=== PATIENT | male | born 1945 | race Caucasian/White ===

== ENCOUNTER 2020-03-05 20:37 | Observation (INO) | payer MEDICARE, OTHER ==
[~2020-03-05] VITALS: Ht 167.6 cm; Wt 73.7 kg
[2020-03-05] MEDS ORDERED: SODIUM CHLORIDE 0.9% 1000ML 1,000 ML IV STA (20:59)
[2020-03-05] MEDS ORDERED: MECLIZINE HCL 12.5 MG TAB PO ONE (21:00)
[2020-03-05 21:57] LABS: BASOPHILS # (AUTO) 0.1 (0.0-0.1); BASOPHILS % 0.8 % (0.0-1.0); EOSINOPHILS # (AUTO) 0.2 (0.0-0.4); EOSINOPHILS % 2.4 % (0.0-6.0); HEMATOCRIT 37.6 % (38.2-49.6); HEMOGLOBIN 12.1 g/dL (14.0-18.0); LYMPHOCYTES # (AUTO) 1.3 (1.0-3.2); LYMPHOCYTES % 16.9 % (18.0-39.1); MEAN CORPUSCULAR HEMOGLOBIN 26.9 pg (28-32); MEAN CORPUSCULAR HGB CONC 32.2 g/dL (31-35); MEAN CORPUSCULAR VOLUME 83.6 fL (81-99); MONOCYTES # (AUTO) 0.7 (0.2-0.8); MONOCYTES % 8.5 % (4.4-11.3); NEUTROPHILS # (AUTO) 5.6 (2.1-6.9); PLATELET COUNT 179 x10e3/uL (140-360); RED CELL DISTRIBUTION WIDTH 15.8 % (11.7-14.4)
[2020-03-05 22:20] LABS: ALANINE AMINOTRANSFERASE 41 IU/L (0-55); ALBUMIN 4.1 g/dL (3.5-5.0); ALBUMIN/GLOBULIN RATIO 1.5 (0.8-2.0); ALKALINE PHOSPHATASE 66 IU/L (40-150); ANION GAP 18.2 mmol/L (8-16); BLOOD UREA NITROGEN 27 mg/dL (7-26); BUN/CREATININE RATIO 25 (6-25); CALCIUM 9.8 mg/dL (8.4-10.2); CARBON DIOXIDE 20 mmol/L (22-29); CHLORIDE 102 mmol/L (98-107); CREATINE KINASE 59 IU/L (30-200); EST GLOMERULAR FILTRATION RATE > 60 ML/MIN (60-); GLUCOSE 112 mg/dL (74-118); POTASSIUM 4.2 mmol/L (3.5-5.1); SODIUM 136 mmol/L (136-145)
[2020-03-05] MEDS ORDERED: ASPIRIN 81 MG CHEW TAB PO ONE (23:00)
[2020-03-06] VITALS (7 sets, daily range): BP systolic 107–120; BP diastolic 69–81
[2020-03-06] MEDS ORDERED: FLOMAX0.4 MG PO (08:38)
[2020-03-06] MEDS ORDERED: LUPRON DEPOT45 MG IM (08:38)
[2020-03-06] MEDS ORDERED: MAGNESIUM OXID400 MG PO (08:38)
[2020-03-06] MEDS ORDERED: VITAMIN D PO (08:38)
[2020-03-06] MEDS ORDERED: POTASSIUM20 MEQ/100 PO (08:38)
[2020-03-06] MEDS ORDERED: VITAMIN B-121000 MC2 SQ (08:38)
[2020-03-06] MEDS ORDERED: OS-CAL 500+D T1 EACH PO (08:38)
[2020-03-06] MEDS ORDERED: PREDNISONE5 MG PO (08:38)
[2020-03-06] MEDS ORDERED: LISINOPRIL10 MG PO (08:38)
[2020-03-06] MEDS ORDERED: AMLODIPINE BESY10 MG PO (08:38)
[2020-03-06] MEDS ORDERED: FAMOTIDINE20 MG PO (08:38)
[2020-03-06] MEDS ORDERED: DIPHENHYDRAMINE25 MG PO (08:38)
[2020-03-06] MEDS ORDERED: CO Q-10100 MG PO (08:38)
[2020-03-06] MEDS ORDERED: AMLODIPINE BESYLATE 10 MG TAB PO SCH (09:00)
[2020-03-06 09:03] LABS: CREATINE KINASE MB 2.2 ng/mL (0-5.0)
[2020-03-06 09:40] LABS: CHOL/HDL RATIO 3.9 (3.9-4.7)
[2020-03-06] MEDS ORDERED: LISINOPRIL 10 MG TAB PO SCH (12:00)
[2020-03-06] MEDS ORDERED: TRAMADOL HCL 50 MG TAB PO NR (12:30)
[2020-03-06 14:54] LABS: CREATINE KINASE MB 2.1 ng/mL (0-5.0)
[2020-03-06] MEDS ORDERED: FAMOTIDINE 20 MG TAB PO SCH (16:30)
[2020-03-06] MEDS ORDERED: MAGNESIUM OXIDE 400 MG TAB PO SCH (17:00)
[2020-03-06] MEDS ORDERED: PREDNISONE 5 MG TAB PO SCH (17:00)
[2020-03-06] MEDS ORDERED: OYST-CAL-D 500MG TABLET PO SCH (17:00)
[2020-03-06] MEDS ORDERED: TAMSULOSIN HCL 0.4 MG CAP PO SCH (21:00)
[2020-03-07] MEDS ORDERED: AMLODIPINE BESYLATE 10 MG TAB PO SCH (09:00)
[2020-03-07] MEDS ORDERED: CYANOCOBALAMIN 1,000 MCG TAB PO SCH (09:00)
== END 2020-03-06 17:51 | disposition home or self-care (01) ==
LOC: ER 20:42 → ERHOLD 23:42 → MED/SURG3 03-06 00:32
PROVIDERS: ADMIT Internal Medicine; ATTEND Internal Medicine
DX: I95.9 Hypotension, unspecified (principal); I10 Essential (primary) hypertension; E78.00 Pure hypercholesterolemia, unspecified; C61 Malignant neoplasm of prostate; J45.909 Unspecified asthma, uncomplicated; R11.10 Vomiting, unspecified; Z11.59 Encounter for screening for other viral diseases
CPT/HCPCS: 36415 ×2; 70450; 80053; 80061; 82550 ×2; 82553 ×2; 84484 ×2; 85025; 93005; 99285; G0378 ×2; J7030; J8597; U0002

== ENCOUNTER 2020-03-13 19:29 | Inpatient (IN) | payer MEDICARE ==
[~2020-03-13] VITALS: Ht 167.6 cm; Wt 74.5 kg
[~2020-03-13 19:29] MED LIST: AMLODIPINE BESY10 MG PO; CO Q-10100 MG PO; DIPHENHYDRAMINE25 MG PO; FAMOTIDINE20 MG PO; FLOMAX0.4 MG PO; LISINOPRIL10 MG PO; LUPRON DEPOT45 MG IM; MAGNESIUM OXID400 MG PO; OS-CAL 500+D T1 EACH PO; POTASSIUM20 MEQ/100 PO; PREDNISONE5 MG PO; VITAMIN B-121000 MC2 SQ; VITAMIN D PO
[2020-03-13] MEDS ORDERED: ONDANSETRON HCL INJ 2MG/ML 2ML 2 MG/ML VIAL IV STA (19:54)
[2020-03-13] MEDS ORDERED: SODIUM CHLORIDE 0.9% 1000ML 1,000 ML IV STA ×2 (19:54→23:40)
--- NOTE | 2020-03-13 19:54 | Emergency Department Note ---
History of Present Illnes History of Present Illness Chief Complaint: Abdominal Complaints History of Present Illness This is a 74 year old male arrives to the ED with complaints of right groin pain that began suddenly. Patient states pain is worsening despite the fact that he's had a hernia for 2 years the pain has come on suddenly today. . Chief Complaint Comment 74 Y/O MALE PT AAOX3 PRESENTS TO THE ER C/O PAIN TO RT GROIN ONSET THIS AFTERNOON AROUND 1730; PT HAS INGUINAL HERNIA FOR THE PAST 2 YEARS BUT EXPERIENCED PAIN TODAY; PT REPROTS STIFFNESS TO SITE; PT STATES PAIN WORSENS WHEN AMBULATING; NAD NOTED AT THIS TIME; V/S/S; SKIN WARM, DRY AND COLOR WNL FOR PT. Historian: Patient Arrival Mode: Car Onset (how long ago): hour(s) Duration (how long): hour(s) Progression: worsening Chronicity: new Relieving factors: none Exacerbating factors: none Past Medical/Family History Physician Review I have reviewed the patient's past medical and family history. Any updates have been documented here. Past Medical History Recent Fever: No Clinical Suspicion of Infectio: No New/Unexplained Change in Ment: No Past Medical History: Hypertension, GERD, Chronic Back Pain Other Medical History: PROSTATE CA WAQAR TO BONE MUSCLE PAIN ESOPHAGEAL STRICTURE PROTEIN PROBLEM INGUINAL HERNIA Past Surgical History: T&A Other Surgery: CIRC TURP CATARACTS Social History Physically hurt or threatened: No Review of Systems Review of Systems Constitutional: Reports no symptoms EENTM: Reports no symptoms Cardiovascular: Reports no symptoms Respiratory: Reports no symptoms Gastrointestinal: Reports no symptoms Genitourinary: Reports as per HPI, Reports other (scrotal pain ) Musculoskeletal: Reports no symptoms Integumentary: Reports no symptoms Neurological: Reports no symptoms Psychological: Reports no symptoms Endocrine: Reports no symptoms Hematological/Lymphatic: Reports no symptoms Physical Exam Related Data Allergies: Coded Allergies: midazolam (Verified Allergy, Unknown, 03/13/20) Uncoded Allergies: MIDALOZAM (Adverse Reaction, Unknown, paradoxical reaction, 03/05/20) Triage Vital Signs Vital Signs Date Time Temp Pulse Resp B/P (MAP) Pulse Ox O2 Delivery O2 Flow Rate FiO2 03/13/20 19:36 98.5 109 20 142/77 98 Room Air Vital signs reviewed: Yes Physical Exam CONSTITUTIONAL Constitutional: Present well-developed, Present well-nourished HENT HENT: Present normocephalic, Present atraumatic, Present oropharynx clear/moist, Present nose normal HENT L/R: Present left ext ear normal, Present right ext ear normal EYES Eyes: Reports PERRL, Reports conjunctivae normal NECK Neck: Present ROM normal PULMONARY Pulmonary: Present effort normal, Present breath sounds normal CARDIOVASCULAR Cardiovascular: Present regular rhythm, Present heart sounds normal, Present capillary refill normal, Present normal rate GASTROINTESTINAL Abdominal: Present soft, Present nontender, Present bowel sounds normal GENITOURINARY Genitourinary: Present other (right testicular pain ) SKIN Skin: Present warm, Present dry MUSCULOSKELETAL Musculoskeletal: Present ROM normal NEUROLOGICAL Neurological: Present alert, Present oriented x 3, Present no gross motor or sensory deficits PSYCHOLOGICAL Psychological: Present mood/affect normal, Present judgement normal Results Laboratory Lab results reviewed: Yes Laboratory comments Laboratory Tests Test 03/14/20 00:00 03/13/20 21:10 03/13/20 21:08 Lactic Acid Level 2.7 mmol/L (0.5-2.0) Urine Color Yellow (YELLOW) Urine Clarity Clear (CLEAR) Urine pH 6.5 (5 - 7) Urine Specific Portia 1.010 (1.010-1.025) Urine Protein Negative (NEGATIVE) Urine Glucose (UA) Negative (NEGATIVE) Urine Ketones Negative (NEGATIVE) Urine Blood Negative (NEGATIVE) Urine Nitrite Negative (NEGATIVE) Urine Bilirubin Negative (NEGATIVE) Urine Urobilinogen 0.2 mg/dL (0.2 - 1) Urine Leukocyte Esterase Negative (NEGATIVE) Urine RBC 0-5 /HPF (0-5) Urine WBC 0-5 /HPF (0-5) Urine Epithelial Cells Few /LPF (NONE) Urine Bacteria Few /HPF (NONE) White Blood Count 6.07 x10e3/uL (4.8-10.8) Red Blood Count 4.99 x10e6/uL (4.3-5.7) Hemoglobin 13.3 g/dL (14.0-18.0) Hematocrit 41.8 % (38.2-49.6) Mean Corpuscular Volume 83.8 fL (81-99) Mean Corpuscular Hemoglobin 26.7 pg (28-32) Mean Corpuscular Hemoglobin Concent 31.8 g/dL (31-35) Red Cell Distribution Width 15.9 % (11.7-14.4) Platelet Count 188 x10e3/uL (140-360) Neutrophils (%) (Auto) 75.5 % (38.7-80.0) Lymphocytes (%) (Auto) 17.3 % (18.0-39.1) Monocytes (%) (Auto) 4.6 % (4.4-11.3) Eosinophils (%) (Auto) 1.8 % (0.0-6.0) Basophils (%) (Auto) 0.5 % (0.0-1.0) Neutrophils # (Auto) 4.6 (2.1-6.9) Lymphocytes # (Auto) 1.1 (1.0-3.2) Monocytes # (Auto) 0.3 (0.2-0.8) Eosinophils # (Auto) 0.1 (0.0-0.4) Basophils # (Auto) 0.0 (0.0-0.1) Absolute Immature Granulocyte (auto 0.02 x10e3/uL (0-0.1) Sodium Level 140 mmol/L (136-145) Potassium Level 3.8 mmol/L (3.5-5.1) Chloride Level 105 mmol/L (98-107) Carbon Dioxide Level 19 mmol/L (22-29) Anion Gap 19.8 mmol/L (8-16) Blood Urea Nitrogen 7 mg/dL (7-26) Creatinine 0.79 mg/dL (0.72-1.25) Estimat Glomerular Filtration Rate > 60 ML/MIN (60-) BUN/Creatinine Ratio 9 (6-25) Glucose Level 116 mg/dL (74-118) Calcium Level 10.0 mg/dL (8.4-10.2) Total Bilirubin 1.0 mg/dL (0.2-1.2) Aspartate Amino Transf (AST/SGOT) 37 IU/L (5-34) Alanine Aminotransferase (ALT/SGPT) 36 IU/L (0-55) Alkaline Phosphatase 84 IU/L (40-150) Creatine Kinase MB 4.00 ng/mL (0-5.0) Troponin I 0.006 ng/mL (0-0.300) Total Protein 7.7 g/dL (6.5-8.1) Albumin 4.5 g/dL (3.5-5.0) Globulin 3.2 g/dL (2.3-3.5) Albumin/Globulin Ratio 1.4 (0.8-2.0) Lipase 24 U/L (8-78) Imaging Imaging results reviewed: Yes Impressions IMPRESSION: 1. Large fat and bowel containing right inguinal hernia, mild edema in the hernia sac is suggestive of strangulation. Slightly dilated loops of small bowel proximal to the hernia is suspicious for low-grade obstruction. The hernia contains distal small bowel and cecum and appendix. 2. 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 Trace perihepatic ascites. 3. Esophagitis. 4. Mild peripancreatic edema can be due to acute interstitial edematous pancreatitis. 5. Prostatomegaly. 6. Cholelithiasis without cystic duct obstruction. Signed by: Yakov Tomlinson DO on 03/13/2020 10:48 PM Critical Care Time Total Critical Care Time (min): 75 Critical care time exclusive o: separately billable procedures Critcal care necessary due to: shock Assessment & Plan Medical Decision Making MDM Findings of strangulated hernia discussed with Dr. Gabriel at 2332, patient hypotensive, diaphoretic. Concerns of impending septic shock noted at 2332, blood cultures, lactic acid drawn. Broad spectrum antibiotics given. Patient will likely need immediate surgical intervention, the preceding info was relayed to general surgery on-call. Bedside volume reassessment done after fluids with improvement noted. Pt continue to complain of pain Dr. Gabriel reconsulted at 2355, OR team activated Lactic acid noted to be 2.7, 2200 mL fluid needed weight-based Rpt lactic acid noted to be 3.0 Lactic acid repeated again and noted to be 2.9 Assessment & Plan Final Impression: (1) Septic shock (2) Inguinal hernia with strangulation Depart Disposition: ADMITTED Last Vital Signs Date Time Temp Pulse Resp B/P (MAP) Pulse Ox O2 Delivery O2 Flow Rate FiO2 03/13/20 19:36 98.5 109 20 142/77 98 Room Air Home Meds Reported Medications Leuprolide Acetate (LUPRON DEPOT) 45 Mg Syringekit, 45 MG IM UD EVERY 6 MONTHS 03/06/20 [Vitamin D] No Conflict Check, 1000 UNITS PO DAILY 03/06/20 Tamsulosin Hcl* (FLOMAX*) 0.4 Mg Cap, 0.4 MG PO DAILY, #30 CAP 03/06/20 Prednisone (PREDNISONE) 5 Mg Tablet, 5 MG PO BID, TAB 03/06/20 Potassium Chloride (POTASSIUM CHLORIDE) 20 Meq/100 Ml Soln, 15 ML PO UD, PIGGYBACK EVERY OTHR DAY 03/06/20 Magnesium Oxide (MAGNESIUM OXIDE) 400 Mg Tablet, 400 MG PO BID, TAB 03/06/20 Lisinopril (LISINOPRIL) 10 Mg Tablet, 10 MG PO DAILY, #30 TAB 03/06/20 Famotidine (FAMOTIDINE) 20 Mg Tab, 20 MG PO BID, #30 TAB 03/06/20 Diphenhydramine Hcl (DIPHENHYDRAMINE HCL) 25 Mg Tablet, 25 MG PO PRN, #30 CAP 03/06/20 Cyanocobalamin (Vitamin B-12) (VITAMIN B-12) 1,000 Mcg Tab.subl, 500 MCG SQ DAILY 03/06/20 Ubidecarenone (CO Q-10) 100 Mg Capsule, 100 MG PO UD EVERY 3 DAYS 03/06/20 Calcium Carbonate/Vitamin D3 (OS-ESTHER 500+D TABLET) 1 Each Tablet, 1 TAB PO BID, TAB 03/06/20 RENA HAMMOND, Mar 13, 2020 19:54
--- OUTSIDE RECORDS SUMMARY | 2020-03-13 20:20 | XMS REPORT | Clinical Summary ---
Author Author [facility] Address Unknown Phone Unavailable Care Team Providers Care Lining Inserter Name Role Phone Elenita Travis MD PCP Unavailable Allergies Comments Active Allergy Reactions Severity Noted Date Paradoxical reaction Midazolam 05/30/2018 Medications End Date Status Medication Sig Dispensed Refills Start Date Active diphenhydrAMINE Take 25 mg by 0 (BENADRYL) 25 mg tablet mouth every 3 (three) hours. Active magnesium oxide-Mg AA Take 250 mg 0 chelate (MAGNESIUM, AMINO by mouth 3 ACID CHELATE,) 133 mg Tab (three) times daily. Active coenzyme Q10 (CO Q-10) Take 100 mg 0 100 mg capsule by mouth daily. Active amLODIPine (NORVASC) 10 Take 10 mg by 0 MG tabletIndications: mouth daily. high blood pressure Active tamsulosin (FLOMAX) 0.4 Take 0.4 mg 0 08/24/ 201 mg Cp24 24 hr capsule by mouth 7 daily. Active calcium carbonate-vitamin Take 1 tablet 0 03/02 D3 (OSCAL-D) 500 by mouth 2 6 mg(1,250mg) -200 unit per (two) times tablet daily. Active hydroCHLOROthiazide Take 25 mg by 0 03/14/ (HYDRODIURIL) 25 MG mouth daily. 7 tablet Active aspirin 325 MG tablet Take 325 mg 0 by mouth daily. Active potassium chloride 25 mEq Take by 0 Pack mouth. Active bicalutamide (CASODEX) 50 Take 50 mg by 0 MG tablet mouth 3 (three) times daily. Active denosumab (XGEVA) 120 Inject 0 mg/1.7 mL (70 mg/mL) subcutaneousl injection y. Active ranitidine (ZANTAC) 150 Take 150 mg 0 MG capsule by mouth 2 (two) times daily. Active traMADol (ULTRAM) 50 mg Take 50 mg by 0 tablet mouth every 6 (six) hours as needed for Pain. Active docusate sodium (COLACE) Take 100 mg 0 100 MG capsule by mouth 2 (two) times daily. Active leuprolide acetate Inject 0 (LUPRON DEPOT, 6 MONTH, intramuscular IM) ly. Active Problems Problem Noted Date Achalasia 09/30/2017 Septic arthritis 07/15/2017 Pyogenic arthritis of left knee joint, due to unspeci fied organism 07/13/2017 BPH (benign prostatic hyperplasia) 11/12/2014 Social History Date Tobacco Use Types Packs/Day Years Used Quit: 07/09/2017 Former Smoker 0.25 10 Smokeless Tobacco: Never Used Tobacco Cessation: Counseling Given: Yes Alcohol Use Drinks/Week oz/Week Comments Yes 3 Cans of 1.8 beer Sex Assigned at Date Recorded Not on file Industry Job Start Date Occupation Not on file Not on file Not on file Travel End Travel History Travel Start No recent travel history available. Last Filed Vital Signs Not on file Plan of Treatment Not on file Results Not on fileafter 03/13/2019 Insurance Payer Benefit Subscriber ID Type Phone Address Plan / Group [facility] xxxxxxxxxxx MEDICARE ADV [phone] Advance Directives For more information, please contact: [facility] [address] [place] [address] Date Inactivated Comments Code Status Date Activated 07/19/2017 7:46 PM Full Code 07/13/2017 9:44 AM This code status was determined by: Patient 11/13/2014 3:57 PM Full Code 11/12/2014 4:23 PM This code status was determined by: Patient
--- OUTSIDE RECORDS SUMMARY | 2020-03-13 20:21 | XMS REPORT | Continuity of Care Document ---
Author Author [facility] t Organization [facility] t Address 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 Role Phone LAISHA TERAN PCP Roberto Carlos HAMMOND Attphys Unavailable Yared CROSS, [facility] Attphys PIPPA COOK Attphys Unavailable MURRAY MARIE Admphys Unavailable Payers Payer Name Policy Type Policy Number Effective Date Expiration Date Roberto Carlos may [employer] Medicare Advantage [id number] [facility] Problems Condition Name Condition Details Condition Category Status Onset Date Resolution Date Last Treatment Date Treating Clinician Comments Source Achalasia Achalasia Disease Active 2017-09-30 00:00:00 [facility] Septic arthritis Septic arthritis Disease Active 2017-07-15 00:00:00 [facility] Pyogenic arthritis of left knee joint, due to unspecif ied organism Pyogenic arthritis of left knee joint, due to unspecified organism Disease Ac tive 2017-07-13 00:00:00 [facility] BPH (benign prostatic hyperplasia) BPH (benign prostatic hyperpl akira) Disease Active 2014-11-12 00:00:00 [facility] Chest pain Problem Active [facility] Allergies, Adverse Reactions, Alerts Allergy Name Allergy Type Status Severity Reaction(s) Onset Date Inacti ve Date Treating Clinician Comments Source MIDALOZAM Propensity to adverse reactions Active para doxical reaction 2020-03-05 00:00:00 [facility] Midazolam Propensity to adverse reactions Active 2017-07 00:00:00 Paradoxical reaction [facility] No Known Allergies DA Active U 2017-07-09 00:00:00 [facility] Social History Social Habit Start Date Stop Date Quantity Comments Source Sex Assigned At [facility] Cigarettes smoked current (pack per day) - Reported 00:00:00 2018-05-30 00:00:00 [facility] Cigarette pack-years 2018-05-30 00:00:00 2018-05-30 00:00:00 [facility] History of tobacco use 2017-07-09 00:00:00 Current smoker [facility] Smoking Status Start Date Stop Date Source Former smoker 2018-05-30 00:00:00 2018-05-30 00:00:00 [facility] Medications Ordered Medication Name Filled Medication Name Start Date Stop Da te Current Medication? Ordering Clinician Indication Dosage Frequency Signature (SIG) Comments Components Source docusate sodium (COLACE) 100 MG capsule 2018-05-30 13:14:40 Yes 100mg Q.5D Take 100 mg by mouth 2 (two) times daily. [facility] leuprolide acetate (LUPRON DEPOT, 6 MONTH, IM) 2018-05-30 13:14: 40 Yes Inject intramuscularly. [facility] traMADol (ULTRAM) 50 mg tablet 2018-05-30 13:08:16 Yes 50mg Take 50 mg by mouth every 6 (six) hours as needed for Pain. [facility] ranitidine (ZANTAC) 150 MG capsule 2018-05-30 12:51:45 Yes 150mg Q.5D Take 150 mg by mouth 2 (two) times daily. [facility] potassium chloride 25 mEq Pack 2018-05-30 12:51:44 Yes Take by mouth. [facility] bicalutamide (CASODEX) 50 MG tablet 2018-05-30 12:51:44 Yes 50mg Q.[id number] Take 50 mg by mouth 3 (three) times daily. [facility] denosumab (XGEVA) 120 mg/1.7 mL (70 mg/mL) injection 2 12:51:44 Yes Inject subcutaneously. [facility] aspirin 325 MG tablet 2017-09-30 11:32:53 Yes 325mg QD Take 325 mg by mouth daily. [facility] amLODIPine (NORVASC) 10 MG tablet 2017-07-13 06:37:06 Yes high blood pressure 10mg QD Take 10 mg by mouth daily. [facility] hydroCHLOROthiazide (HYDRODIURIL) 25 MG tablet 2017-03-14 00:00: 00 Yes 25mg QD Take 25 mg by mouth daily. [facility] tamsulosin (FLOMAX) 0.4 mg Cp24 24 hr capsule 2016-08-24 00:00:0 0 Yes .4mg QD Take 0.4 mg by mouth daily. [facility] calcium carbonate-vitamin D3 (OSCAL-D) 500 mg(1,250mg) -200 unit per tablet 2016-03-20 00:00:00 Yes 1{tbl} Q.5D Take 1 tablet by mouth 2 (two) times daily. [facility] diphenhydrAMINE (BENADRYL) 25 mg tablet 2014-10-29 10:47:26 Yes 25mg Take 25 mg by mouth every 3 (three) hours. [facility] magnesium oxide-Mg AA chelate (MAGNESIUM, AMINO ACID CHELATE ,) 133 mg Tab 2014-10-29 10:47:26 Yes 250mg Q.[id number] Take 250 mg by mouth 3 (three) times daily. [facility] coenzyme Q10 (CO Q-10) 100 mg capsule 2014-10-29 10:47:26 Y es 100mg QD Take 100 mg by mouth daily. [facility] Calcium Carbonate/Vitamin D3 (Os-Won 500+D Tablet) 1 E ach TABLET Calcium Carbonate/Vitamin D3 (Os-Won 500+D Tablet) 1 Each TABLET Yes 1 Twice A Day [facility] Cyanocobalamin (Vitamin B-12) (Vitamin B-12) 1,000 Mcg TAB.SUBL Cyanocobalamin (Vitamin B-12) (Vitamin B-12) 1,000 Mcg TAB.SUBL Yes 5 00 Daily [facility] Diphenhydramine Hcl Diphenhydramine Hcl Yes 25 As Needed [facility] Famotidine Famotidine Yes 20 Twice A Day [facility] Leuprolide Acetate (Lupron Depot) 45 Mg SYRINGEKIT Jackelin prolide Acetate (Lupron Depot) 45 Mg SYRINGEKIT Yes 45 Use As Directe d [facility] Lisinopril Lisinopril Yes 10 Daily [facility] Magnesium Oxide Magnesium Oxide Yes 400 Twice A Day [facility] Potassium Chloride Potassium Chloride Yes 15 Us e As Directed [facility] Prednisone Prednisone Yes 5 Twice A Day [facility] Tamsulosin Hcl (Flomax*) 0.4 Mg CAP Tamsulosin Hcl (Flomax*) 0.4 Mg C AP Yes .4 Daily [facility] Ubidecarenone (Co Q-10) 100 Mg CAPSULE Ubidecarenone (Co Q-10) 1 00 Mg CAPSULE Yes 100 Use As Directed [facility] Vitamin D Vitamin D Yes 1000 Daily [facility] Amlodipine Besylate Amlodipine Besylate 2020-03-06 00:00:00 No 10 Daily [facility] Vital Signs Vital Name Observation Time Observation Value Comments Source Body Temperature 2020-03-06 16:00:00 98.5 [degF] [facility] Weight 2020-03-06 05:01:00 162.50 [lb_av] [facility] BMI (Body Mass Index) 2020-03-06 05:01:00 26.2 kg/m2 [facility] Procedures Procedure Date / Time Performed Performing Clinician Reid e Computed tomography of brain without radiopaque contrast 2020-03 00:00:00 [facility] Plan of Care Planned Activity Planned Date Details Comments Source Instructions Chest Pain - Noncardiac [facility] Instructions Dizziness [facility] Encounters Start Date/Time End Date/Time Encounter Type Admission Type [facility] Care Department Encounter ID Source 2020-03-05 23:42:00 2020-03-06 17:51:00 Discharged Inpatient (obs) RENA HAMMOND [facility] [id number] [facility] 2019-04-15 10:42:13 2019-04-15 16:08:46 Office Visit Elvira Gutierrez [facility] [id number] Results Test Description Test Time Test Comments Results Result Comments Source Serum or plasma creatine kinase measurement (enzymatic activity/volume) 2020-03-06 14:21:00 Test Item Creatine Kinase (test code = 2157-6) 47 30-200 [facility] MB measurement (mass/volume)2020-03-06 14:21:00* Test Item Value Reference Range Interpretation Comments Creatine Kinase MB (test code = 79670-8) 2.10 0-5.0 [facility] measurement by highly sensitive enzyme [id number] 14:21:00* Test Item Value Reference Range Interpretation Comments Troponin I (test code = 55660-5) 0.021 0-0.300 [facility] triglyceride measurement (mass/volume)2020-03-06 08:10:00* Test Item Value Reference Range Interpretation Comments Triglycerides Level (test code = 2571-8) 179 0-149 [facility] cholesterol measurement (mass/volume)2020-03-06 08:10:00* Test Item Value Reference Range Interpretation Comments Cholesterol Level (test code = 2093-3) 150 0-199 Less than 200 mg/dL Low Zgye200 - 239 mg/dL Borderline Pqdm849 m g/dl and greater High Risk [facility] in LDL measurement (mass/volume) 2020-03-06 08:10:00* Test Item Value Reference Range Interpretation Comments LDL Cholesterol (test code = 2089-1) 76 60-130 [facility] cholesterol in HDL measurement (mass/volume)2020-03-06 08:10:00* Test Item Value Reference Range Interpretation Comments HDL Cholesterol (test code = 2085-9) 38 40-60 [facility] total cholesterol/cholesterol in HDL mass [id number] 08:10:00* Test Item Value Reference Range Interpretation Comments Cholesterol/HDL Ratio (test code = 9830-1) 3.9 3.9-4.7 [facility] [id number] 21:45:00 [facility] [address] [place] [address] Patient Name: GABRIELE SHAIKH MR #: [id number] : 1945 Age/Sex: 74/M Req #: [id number] Adm Physician: Ordered by: RENA HAMMOND DO Report #: [id number] Location: Room/Bed: Procedure: [id number] CT/CT BRAIN WO Exam Date: 03/05/20 Exam Time: 2131 REPORT STATUS: Signed EXAMINATION: Head CT wi thout contrast. HISTORY:Dizziness and blurred vision. COMPARISON: None. TECHNIQUE: Multidetector axial images were obtained from the foramen mag num to the vertex without contrast. The images were reconstructed using brain and bone algorithms. Thin section brain images were reformatted into coronal and sagittal planes. Dose modulation, iterative reconstruction, and/or weigh t based adjustment of the mA/kV was utilized to reduce the radiation dose to a s low as reasonably achievable. Intravenous contrast: None IMAGE Q UALITY: Suboptimal evaluation particularly at the level of skull base and post erior fossa structures due to streak artifacts. FINDINGS: Skull/scalp : No lytic or blastic. lesions. No surgical changes. Parenchyma: Nonspeci fic bilateral frontoparietal patchy white matter hypodensity are likely relate d to small vessel ischemic changes. No acute hemorrhage, mass or acute major v ascular territorial infarct. Arteries: No density suggestive of thrombosis . Atherosclerotic calcification in bilateral carotid siphon and V4 segment of the vertebral arteries. Dural sinuses: No abnormal density suggestive of thrombosis. Ventricles: No hydrocephalus or displacement. Extra -axial spaces: No abnormal density. Brain volume: Mild generalized age-r elated cerebral volume loss. Craniocervical junction: No mass, Chiari malf ormation, or basilar invagination. Sella: No mass. Paranasal/mast oid sinuses: Imaged portions unremarkable. IMPRESSION: No acute intrac ranial abnormality. Mild generalized cerebral volume loss. Mild suprat entorial white matter microvascular ischemic changes. Signed by: Dr. Darion Lara M.D. on 03/05/2020 9:48 PM Dictated By: REX LARA MD Elec tronically Signed By: REX LARA MD on 03/05/202147 Transcribed By: KATE MONTIEL on 03/05/202147 COPY TO: RENA HAMMOND DO Blood leukocytes automated count (number/volume)2020-03-05 21:40:00* Test Item Value Reference Range Interpretation Comments White Blood Count (test code = 6690-2) 7.86 4.8-10.8 [facility] automated count (number/volume)2020-03-05 21:40:00* Test Item Value Reference Range Interpretation Comments Red Blood Count (test code = 789-8) 4.50 4.3-5.7 [facility] measurement (moles/volume)2020-03-05 21:40:00* Test Item Value Reference Range Interpretation Comments Hemoglobin (test code = 25030-8) 12.1 14.0-18.0 [facility] blood hematocrit (volume fraction)2020-03-05 21:40:00* Test Item Value Reference Range Interpretation Comments Hematocrit (test code = 4544-3) 37.6 38.2-49.6 [facility]ated erythrocyte mean corpuscular [id number] 21:40:00* Test Item Value Reference Range Interpretation Comments Mean Corpuscular Volume (test code = 787-2) 83.6 81-99 [facility] eryth[facility] mean corpuscular hemoglobin (mass per erythrocyte)2020-03-05 21:40:00* Test Item Value Reference Range Interpretation Comments Mean Corpuscular Hemoglobin (test code = 785-6) 26.9 28-32 [facility] erythrocyte mean corpuscular hemoglobin concentration measurement (mass/volume)2020-03-05 21:40:00* Test Item Value Reference Range Interpretation Comments Mean Corpuscular Hemoglobin Concent (test code = 786-4) 32.2 31-35 [facility] HospitalRDW [id number]-[id number] 21:40:00* Test Item Value Reference Range Interpretation Comments Red Cell Distribution Width (test code = 15752-2) 15.8 11.7 -14.4 [facility]Autom[facility] blood platelet count (count/volume)2020-03-05 21:40:00* Test Item Value Reference Range Interpretation Comments Platelet Count (test code = 777-3) 179 140-360 [facility] blood segmented neutrophil count as percentage of total rhadztuxib3096-40-52 21:40:00* Test Item Value Reference Range Interpretation Comments Neutrophils (%) (Auto) (test code = 96546-2) 71.0 38.7-80.0 [facility] blood lymphocyte count as percentage ot total gnvhcxwyjz7027-36-07 21:40:00* Test Item Value Reference Range Interpretation Comments Lymphocytes (%) (Auto) (test code = 736-9) 16.9 18.0-39.1 [facility] blood monocyte count as percentage of total oqyqmybusm2737-88-73 21:40:00* Test Item Value Reference Range Interpretation Comments Monocytes (%) (Auto) (test code = 5905-5) 8.5 4.4-11.3 [facility] HospitalAutom[facility] blood eosinophil count as percentage of total hfdbxnrmkz8855-40-87 21:40:00* Test Item Value Reference Range Interpretation Comments Eosinophils (%) (Auto) (test code = 713-8) 2.4 0.0-6.0 [facility] Hospital[facility] blood basophil count as percentage of total qdegidgqxg7099-63-76 21:40:00* Test Item Value Reference Range Interpretation Comments Basophils (%) (Auto) (test code = 706-2) 0.8 0.0-1.0 [facility] HospitalFluoroscopic procedure less than one hour mcfcubnw6796-80-54 21:40:00* Test Item Value Reference Range Interpretation Comments IM GRANULOCYTES % (test code = IM GRANULOCYTES %) 0.4 0.0- 1.0 [facility] neutrophil count 2020-03-05 21:40:00* Test Item Value Reference Range Interpretation Comments Neutrophils # (Auto) (test code = 751-8) 5.6 2.1-6.9 [facility] lymphocytes count (number/volume) 2020-03-05 21:40:00* Test Item Value Reference Range Interpretation Comments Lymphocytes # (Auto) (test code = 69300-3) 1.3 1.0-3.2 [facility] monocytes automated count (number/volume)2020-03-05 21:40:00* Test Item Value Reference Range Interpretation Comments Monocytes # (Auto) (test code = 742-7) 0.7 0.2-0.8 [facility] HospitalAutom[facility] blood eosinophil count 2020-03-05 21:40:00* Test Item Value Reference Range Interpretation Comments Eosinophils # (Auto) (test code = 711-2) 0.2 0.0-0.4 [facility] HospitalAutomated blood basophil count (count/volume)2020-03-05 21:40:00* Test Item Value Reference Range Interpretation Comments Basophils # (Auto) (test code = 704-7) 0.1 0.0-0.1 [facility] HospitalFluoroscopic procedure less than one hour qcqvtoqt6039-51-37 21:40:00* Test Item Value Reference Range Interpretation Comments Absolute Immature Granulocyte (auto (jami t code = Absolute Immature Granulocyte (auto) 0.03 0-0.1 [facility] sodium measurement (moles/volume)2020-03-05 21:40:00* Test Item Value Reference Range Interpretation Comments Sodium Level (test code = 2951-2) 136 136-145 [facility] potassium measurement (moles/volume)2020-03-05 21:40:00* Test Item Value Reference Range Interpretation Comments Potassium Level (test code = 2823-3) 4.2 3.5-5.1 [facility] chloride measurement (moles/volume)2020-03-05 21:40:00* Test Item Value Reference Range Interpretation Comments Chloride Level (test code = 2075-0) 102 98-107 [facility] carbon dioxide, total measurement (moles/volume)2020-03-05 21:40:00* Test Item Value Reference Range Interpretation Comments Carbon Dioxide Level (test code = 2028-9) 20 22-29 [facility] anion nhy1135-65-93 21:40:00* Test Item Value Reference Range Interpretation Comments Anion Gap (test code = 89774-0) 18.2 8-16 [facility] urea nitrogen measurement (mass/volume)2020-03-05 21:40:00* Test Item Value Reference Range Interpretation Comments Blood Urea Nitrogen (test code = 3094-0) 27 7-26 [facility] creatinine measurement (mass/volume)2020-03-05 21:40:00* Test Item Value Reference Range Interpretation Comments Creatinine (test code = 2160-0) 1.10 0.72-1.25 [facility] urea nitrogen/creatinine mass avwtd0193-63-85 21:40:00* Test Item Value Reference Range Interpretation Comments BUN/Creatinine Ratio (test code = 3097-3) 25 6-25 [facility] HospitalEstimated glomerular filtration rate (GFR) ptowifdfwsxsw1272-58-35 21:40:00* Test Item Value Reference Range Interpretation Comments Estimat Glomerular Filtration Rate (test code = 306519976) > 60 >60 Ranges were taken from the National Kidney Disease Education Program and the [facility] Foundation literature.Reference ranges:60 or greater: Fnytwp65-83 ( for 3 consecutive months): Chronic kidney disease 15 or less: Kidney failureCuero Regional HospitalGlucose bymnskaccme7843-63-35 21:40:00* Test Item Value Reference Range Interpretation Comments Glucose Level (test code = IMB2299) 112 74-118 [facility] calcium measurement (mass/volume)2020-03-05 21:40:00* Test Item Value Reference Range Interpretation Comments Calcium Level (test code = 45821-5) 9.8 8.4-10.2 [facility] total bilirubin measurement (mass/volume)2020-03-05 21:40:00* Test Item Value Reference Range Interpretation Comments Total Bilirubin (test code = 1975-2) 0.8 0.2-1.2 [facility] HospitalFluoroscopic procedure less than one hour zsooiwwk4746-17-46 21:40:00* Test Item Value Reference Range Interpretation Comments Aspartate Amino Transf (AST/SGOT) (test code = Aspartate Amino Transf (AST/SGOT)) 60 5-34 [facility] alanine aminotransferase measurement (enzymatic activity/volume)2020-03-05 21:40:00* Test Item Value Reference Range Interpretation Comments Alanine Aminotransferase (ALT/SGPT) (test code = 1742-6) 41 0-55 [facility] protein measurement (mass/volume)2020-03-05 21:40:00* Test Item Value Reference Range Interpretation Comments Total Protein (test code = 2885-2) 6.8 6.5-8.1 [facility] albumin measurement (mass/volume)2020-03-05 21:40:00* Test Item Value Reference Range Interpretation Comments Albumin (test code = 1751-7) 4.1 3.5-5.0 [facility] HospitalPlasma globulin measurement (mass/volume) 2020-03-05 21:40:00* Test Item Value Reference Range Interpretation Comments Globulin (test code = 99998-2) 2.7 2.3-3.5 [facility] albumin/globulin mass kwvoi6045-37-08 21:40:00* Test Item Value Reference Range Interpretation Comments Albumin/Globulin Ratio (test code = 1759-0) 1.5 0.8-2.0 [facility] alkaline phosphatase measurement (enzymatic activity/volume)2020-03-05 21:40:00* Test Item Value Reference Range Interpretation Comments Alkaline Phosphatase (test code = 6768-6) 66 40-150 [facility]FL, CENTER CUSTOMER SERVICE ASSOCIATE IN OR/30 MINUTE INCREMENTS 2018-05-30 15:42:00Reason for exam:->DYSPHAGIAFINAL REPORT Nondiagnostic exam. Radiology provided fluoroscopy for ERCP performed by Dr. Parrish. Neither radiologist presence nor interpretation were requested. Please refer to the operative report for further information. Fluoroscopy time was 2.7 minutes. Total # of images: 8 Signed: JR Morales Robert MDReport Verified Date/Time: 05/30/2018 15:42:00 Reading Location: [address] Consult Reading Room , CENTER CUSTOMER SERVICE ASSOCIATE IN OR/30 MINUTE [id number] 17:53:00Reason for exam:->acahalaciaAddendum BeginsREPORT STATUS:A Addendum: Fluoroscopy nonspecific dated September 30, 2017 Signed: Nolberto Will Verified Date/Time: 09/30/2017 17:53:22 Reading Location: [address] Radiology Reading RoomAddendum EndsFINAL REPORT Fluoroscopy nonspecific dated September 30, 2009 18 Comment: Total fluoroscopy time was 2.7 minutes. Total number of fluoroscopy images were 7. The fluoroscopy study was provided to Dr. Parrish for intraoperative procedure. No radiologist was present during the examination. Signed: Nolberto Will MDReport Verified Date/Time: 09/30/2017 17:43:25 Reading Location: [address] Radiology Reading Room D [id number] 23:00:00* Test Item Value Reference Range Interpretation Comments CULTURE (BEAKER) (test code = 1095) No growth in 5 days BLOOD [id number] 23:00:00* Test Item Value Reference Range Interpretation Comments CULTURE (BEAKER) (test code = 1095) No growth in 5 days BLOOD [id number] 10:46:00* Test Item Value Reference Range Interpretation Comments CULTURE (BEAKER) (test code = 1095) A From Anaerobic Bottle Only Same organism has been isolated from cultures(s) of the same body site within 3 days. Repeat identification and susceptibility testing performed only after consultation with the clinical microbiology laboratory.Refer to previous culture ofStaphylococcus aureus GRAM STAIN RESULT (BEAKER) (test code = 1123) From lev erobic bottle only: gram positive cocci in clusters BLOOD [id number] 10:45:00* Test Item Value Reference Range Interpretation Comments CULTURE (BEAKER) (test code = 1095) A From Anaerobic Bottle Only Same organism has been isolated from cultures(s) of the same body site within 3 days. Repeat identification and susceptibility testing performed only after consultation with the clinical microbiology laboratory.Refer to previous culture ofStaphylococcus aureus GRAM STAIN RESULT (BEAKER) (test code = 1123) From lev erobic bottle only: gram positive cocci in clusters POCT-GLUCOSE [id number] 09:40:00* Test Item Value Reference Range Interpretation Comments POC-GLUCOSE METER (BEAKER) (test code = 1538) 128 mg/dL 70-[address] [facility] [address] [facility] [address] POCT-GLUCOSE [id number] 22:07:00* Test Item Value Reference Range Interpretation Comments POC-GLUCOSE METER (BEAKER) (test code = 1538) 102 mg/dL 70-110 TESTED AT [facility] [address] [facility] [address] BASIC METABOLIC [id number] 06:06:00* Test Item Value Reference Range Interpretation Comments SODIUM (BEAKER) (test code = 381) 131 meq/L 136-145 L POTASSIUM (BEAKER) (test code = 379) 3.7 meq/L 3.5-5.1 CHLORIDE (BEAKER) (test code = 382) 94 meq/L 98-107 L CO2 (BEAKER) (test code = 355) 25 meq/L 22-29 BLOOD UREA NITROGEN (BEAKER) (test code = 354) 11 mg/dL 7-21 CREATININE (BEAKER) (test code = 358) 0.64 mg/dL 0.57-1.25 GLUCOSE RANDOM (BEAKER) (test code = 652) 127 mg/dL 70-105 H CALCIUM (BEAKER) (test code = 697) 9.0 mg/dL 8.4-10.2 EGFR (BEAKER) (test code = 1092) 123 mL/min/1.73 sq m ESTIMATED GFR IS NOT ACCURATE CREATININE CLEARANCE IN PREDICTING GLOMERULAR FILTRATION RATE. ESTIMATED GFR IS NOT APPLICABLE FOR DIALYSIS PATIENTS. CBC W/PLT COUNT & AUTO [id number] 05:40:00* Test Item Value Reference Range Interpretation Comments WHITE BLOOD CELL COUNT (BEAKER) (test code = 775) 11.0 K/ L 3.5- 10.5 H RED BLOOD CELL COUNT (BEAKER) (test code = 761) 4.24 M/ L 4.63-6 .08 L HEMOGLOBIN (BEAKER) (test code = 410) 12.6 GM/DL 13.7-17.5 L HEMATOCRIT (BEAKER) (test code = 411) 36.3 % 40.1-51.0 L MEAN CORPUSCULAR VOLUME (BEAKER) (test code = 753) 85.6 fL 79. 0-92.2 MEAN CORPUSCULAR HEMOGLOBIN (BEAKER) (test code = 751) 29.7 pg 25.7-32.2 MEAN CORPUSCULAR HEMOGLOBIN CONC (BEAKER) (test code = 752) 34.7 GM/DL 32.3-36.5 RED CELL DISTRIBUTION WIDTH (BEAKER) (test code = 412) 13.2 % 11.6-14.4 PLATELET COUNT (BEAKER) (test code = 756) 232 K/CU MM 150-450 MEAN PLATELET VOLUME (BEAKER) (test code = 754) 10.3 fL 9.4-12 .4 NUCLEATED RED BLOOD CELLS (BEAKER) (test code = 413) 0 /100 WBC 0 -0 NEUTROPHILS RELATIVE PERCENT (BEAKER) (test code = 429) 68 % LYMPHOCYTES RELATIVE PERCENT (BEAKER) (test code = 430) 19 % MONOCYTES RELATIVE PERCENT (BEAKER) (test code = 431) 9 % EOSINOPHILS RELATIVE PERCENT (BEAKER) (test code = 432) 2 % BASOPHILS RELATIVE PERCENT (BEAKER) (test code = 437) 0 % NEUTROPHILS ABSOLUTE COUNT (BEAKER) (test code = 670) 7.46 K/ L 1.78-5.38 H LYMPHOCYTES ABSOLUTE COUNT (BEAKER) (test code = 414) 2.05 K/ L 1.32-3.57 MONOCYTES ABSOLUTE COUNT (BEAKER) (test code = 415) 1.00 K/ L 0. 30-0.82 H EOSINOPHILS ABSOLUTE COUNT (BEAKER) (test code = 416) 0.19 K/ L 0.04-0.54 BASOPHILS ABSOLUTE COUNT (BEAKER) (test code = 417) 0.03 K/ L 0. 01-0.08 IMMATURE GRANULOCYTES-RELATIVE PERCENT (BEAKER) (test code = 2801) 2 % 0-1 H POCT-GLUCOSE [id number] 21:41:00* Test Item Value Reference Range Interpretation Comments POC-GLUCOSE METER (BEAKER) (test code = 1538) 199 mg/dL 70-[address] [facility] [address] [facility] [address] EOSINOPHIL SMEAR, [id number] 20:56:00* Test Item Value Reference Range Interpretation Comments EOSINOPHIL SMEAR, URINE (BEAKER) (test code = 1851) No EOS seen No EOS seen POCT-GLUCOSE [id number] 16:37:00* Test Item Value Reference Range Interpretation Comments POC-GLUCOSE METER (BEAKER) (test code = 1538) 141 mg/dL 70-[address] [facility] [address] [facility] [address] RAD, ANKLE, 2 VIEWS, [id number] 15:22:00Reason for exam:->pain assess for effusionFINAL REPORT Ankle, left, two views INDICATION: Pain. Effusion. COMPARISON: None available IMPRESSION: There is no evidence of acute fracture, dislocation, or destructive osseous lesion. Mild ankle joint arthritic changes are suspected with tiny osteophytes. There are incidental vascular calcifications. No significant ankle joint effusion is seen radiographically. Signed: Elias Villagran MDReport Verified Date/Time: 07/17/2017 15:22:52 Reading Location: [facility] [id number] Consult Reading Room - GLUCOSE [id number] 09:24:00* Test Item Value Reference Range Interpretation Comments POC-GLUCOSE METER (BEAKER) (test code = 1538) 119 mg/dL 70-[address] [facility] [address] [facility] [address] BASIC METABOLIC [id number] 06:29:00* Test Item Value Reference Range Interpretation Comments SODIUM (BEAKER) (test code = 381) 130 meq/L 136-145 L POTASSIUM (BEAKER) (test code = 379) 3.6 meq/L 3.5-5.1 CHLORIDE (BEAKER) (test code = 382) 89 meq/L 98-107 L CO2 (BEAKER) (test code = 355) 27 meq/L 22-29 BLOOD UREA NITROGEN (BEAKER) (test code = 354) 12 mg/dL 7-21 CREATININE (BEAKER) (test code = 358) 1.63 mg/dL 0.57-1.25 H GLUCOSE RANDOM (BEAKER) (test code = 652) 323 mg/dL 70-105 H CALCIUM (BEAKER) (test code = 697) 8.6 mg/dL 8.4-10.2 EGFR (BEAKER) (test code = 1092) 42 mL/min/1.73 sq m ESTIMATED GFR IS NOT ACCURATE CREATININE CLEARANCE IN PREDICTING GLOMERULAR FILTRATION RATE. ESTIMATED GFR IS NOT APPLICABLE FOR DIALYSIS PATIENTS. CBC W/PLT COUNT & AUTO [id number] 05:52:00* Test Item Value Reference Range Interpretation Comments WHITE BLOOD CELL COUNT (BEAKER) (test code = 775) 9.2 K/ L 3.5- 10.5 RED BLOOD CELL COUNT (BEAKER) (test code = 761) 3.88 M/ L 4.63-6 .08 L HEMOGLOBIN (BEAKER) (test code = 410) 11.5 GM/DL 13.7-17.5 L HEMATOCRIT (BEAKER) (test code = 411) 34.0 % 40.1-51.0 L MEAN CORPUSCULAR VOLUME (BEAKER) (test code = 753) 87.6 fL 79. 0-92.2 MEAN CORPUSCULAR HEMOGLOBIN (BEAKER) (test code = 751) 29.6 pg 25.7-32.2 MEAN CORPUSCULAR HEMOGLOBIN CONC (BEAKER) (test code = 752) 33.8 GM/DL 32.3-36.5 RED CELL DISTRIBUTION WIDTH (BEAKER) (test code = 412) 13.3 % 11.6-14.4 PLATELET COUNT (BEAKER) (test code = 756) 178 K/CU MM 150-450 MEAN PLATELET VOLUME (BEAKER) (test code = 754) 10.2 fL 9.4-12 .4 NUCLEATED RED BLOOD CELLS (BEAKER) (test code = 413) 0 /100 WBC 0 -0 NEUTROPHILS RELATIVE PERCENT (BEAKER) (test code = 429) 65 % LYMPHOCYTES RELATIVE PERCENT (BEAKER) (test code = 430) 22 % MONOCYTES RELATIVE PERCENT (BEAKER) (test code = 431) 9 % EOSINOPHILS RELATIVE PERCENT (BEAKER) (test code = 432) 2 % BASOPHILS RELATIVE PERCENT (BEAKER) (test code = 437) 0 % NEUTROPHILS ABSOLUTE COUNT (BEAKER) (test code = 670) 5.98 K/ L 1.78-5.38 H LYMPHOCYTES ABSOLUTE COUNT (BEAKER) (test code = 414) 2.01 K/ L 1.32-3.57 MONOCYTES ABSOLUTE COUNT (BEAKER) (test code = 415) 0.86 K/ L 0. 30-0.82 H EOSINOPHILS ABSOLUTE COUNT (BEAKER) (test code = 416) 0.14 K/ L 0.04-0.54 BASOPHILS ABSOLUTE COUNT (BEAKER) (test code = 417) 0.02 K/ L 0. 01-0.08 IMMATURE GRANULOCYTES-RELATIVE PERCENT (BEAKER) (test code = 2801) 2 % 0-1 H POCT-GLUCOSE [id number] 22:25:00* Test Item Value Reference Range Interpretation Comments POC-GLUCOSE METER (BEAKER) (test code = 1538) 136 mg/dL 70-[address] [facility] [address] [facility] [address] POCT-GLUCOSE [id number] 19:26:00* Test Item Value Reference Range Interpretation Comments POC-GLUCOSE METER (BEAKER) (test code = 1538) 114 mg/dL 70-[address] [facility] [address] [facility] [address] POCT-GLUCOSE [id number] 15:02:00* Test Item Value Reference Range Interpretation Comments POC-GLUCOSE METER (BEAKER) (test code = 1538) 141 mg/dL 70-[address] [facility] [address] [facility] [address] BLOOD [id number] 09:31:00* Test Item Value Reference Range Interpretation Comments CULTURE (BEAKER) (test code = 1095) A From Aerobic And Anaerobic Bottles Same organism has been isolated from cultures(s) of the same body site and collection date. Repeat identification and susceptibility testing performed only after consultation with the clinical microbiology laboratory.Refer to previous culture ofStaphylococcus aureus GRAM STAIN RESULT (BEAKER) (test code = 1123) From aer obic bottle only: gram positive cocci in clusters GRAM STAIN RESULT (BEAKER) (test code = 496996) From a naerobic bottle only: gram positive cocci in clusters BLOOD [id number] 09:29:00* Test Item Value Reference Range Interpretation Comments CULTURE (BEAKER) (test code = 1095) Clindamycin (test code = 10) S Erythromycin (test code = 4) S Linezolid (test code = 40) S Oxacillin (test code = 14) S Rifampin (test code = 43) S Tetracycline (test code = 2) S Trimethoprim + Sulfamethoxazole (test code = 47) S Vancomycin (test code = 13) S CULTURE (BEAKER) (test code = 1095) A From Aerobic And Anaerobic Bottles Staphylococcus aureus GRAM STAIN RESULT (BEAKER) (test code = 1123) From aer obic bottle only: gram positive cocci in clusters METHICILLIN-SUSCEPTIBLE STAPH. AUREUS (MSSA) DETECTEDStaphylococcus aureus DETEC JOHANNA MecA NOT DETECTEDFirst line therapy: cefazolin or nafcillin (nafcillin prefe rred if Central Nervous System Infection)[facility] policy mandates Infectious Disease consultation for all patients with Staph. aureus kiko teremia.Other organisms and resistance markers not contained in this PCR panel c annot be excluded and follow-up of traditional culture results is required. Thi s sample was tested at the [facility] Clinical Microbiology Laboratory using the [employer] Blood Culture ID Panel. This test is FDA cleared for in vitro diag nostic use and has been verified and approved by the [facility] Clinical Microbiology laboratory for clinical use. Reference Range: Not DetectedPOCT-GLUCOSE METER 2017-07-16 08:31:00* Test Item Value Reference Range Interpretation Comments POC-GLUCOSE METER (BEAKER) (test code = 1538) 100 mg/dL 70-[address] [facility] [address] [facility] [address] [id number] 07:59:00* Test Item Value Reference Range Interpretation Comments PHOSPHORUS (BEAKER) (test code = 604) 2.2 mg/dL 2.3-4.7 L [id number] 07:59:00* Test Item Value Reference Range Interpretation Comments MAGNESIUM (BEAKER) (test code = 627) 1.2 mg/dL 1.6-2.6 L BASIC METABOLIC [id number] 07:59:00* Test Item Value Reference Range Interpretation Comments SODIUM (BEAKER) (test code = 381) 138 meq/L 136-145 POTASSIUM (BEAKER) (test code = 379) 3.4 meq/L 3.5-5.1 L CHLORIDE (BEAKER) (test code = 382) 98 meq/L 98-107 CO2 (BEAKER) (test code = 355) 30 meq/L 22-29 H BLOOD UREA NITROGEN (BEAKER) (test code = 354) 13 mg/dL 7-21 CREATININE (BEAKER) (test code = 358) 0.59 mg/dL 0.57-1.25 GLUCOSE RANDOM (BEAKER) (test code = 652) 78 mg/dL 70-105 CALCIUM (BEAKER) (test code = 697) 9.3 mg/dL 8.4-10.2 EGFR (BEAKER) (test code = 1092) 135 mL/min/1.73 sq m ESTIMATED GFR IS NOT ACCURATE CREATININE CLEARANCE IN PREDICTING GLOMERULAR FILTRATION RATE. ESTIMATED GFR IS NOT APPLICABLE FOR DIALYSIS PATIENTS. HEPATIC FUNCTION [id number] 07:59:00* Test Item Value Reference Range Interpretation Comments TOTAL PROTEIN (BEAKER) (test code = 770) 6.6 gm/dL 6.0-8.3 ALBUMIN (BEAKER) (test code = 1145) 2.9 g/dL 3.5-5.0 L BILIRUBIN TOTAL (BEAKER) (test code = 377) 0.9 mg/dL 0.2-1.2 BILIRUBIN DIRECT (BEAKER) (test code = 706) 0.5 mg/dL 0.1-0.5 ALKALINE PHOSPHATASE (BEAKER) (test code = 346) 162 U/L 40-150 H AST (SGOT) (BEAKER) (test code = 353) 70 U/L 5-34 H ALT (SGPT) (BEAKER) (test code = 347) 61 U/L 6-55 H PROTHROMBIN [id number] 07:43:00* Test Item Value Reference Range Interpretation Comments PROTIME (BEAKER) (test code = 759) 15.1 seconds 11.7-14.7 H INR (BEAKER) (test code = 370) 1.2 <=5.9 RECOMMENDED COUMADIN/WARFARIN INR THERAPY RANGESSTANDARD DOSE: 2.0 - 3.0 Inclu rip: PROPHYLAXIS for venous thrombosis, systemic embolization; TREATMENT for zandra ous thrombosis and/or pulmonary embolus.HIGH RISK: Target INR is 2.5-3.5 for pat ients with mechanical heart valves.POCT-GLUCOSE [id number] 21:31:00* Test Item Value Reference Range Interpretation Comments POC-GLUCOSE METER (BEKATE) (test code = 1538) 168 mg/dL 70-[address] [facility] [address] [facility] [address] RAD, CHEST, 1 VIEW, NON [id number] 17:18:00Reason for exam:->check picc placement Should this be performed at the bedside?->YesFINAL REPORT AP view of the chest dated 07/15/2017 CLINICAL INFORMATION: check picc placement Comment: Heart is normal in size. Pulmonary vasculature is unremarkable. Subsegmental atelectasis is seen both lung bases. The rest of lungs are clear. No pulmonary infiltrate or pleural effusion is present. A left PICC line is present with tip seen in the superior vena cava. Signed: Nolberto Willeport Verified Date/Time: 07/15/2017 17:18:19 Reading Location: [facility] C013W Consult Reading Room -GLUCOSE [id number] 17:15:00* Test Item Value Reference Range Interpretation Comments POC-GLUCOSE METER (BEAKER) (test code = 1538) 204 mg/dL 70-[address] [facility] [address] [facility] [address] MISCELLANEOUS LAB [id number] 14:38:00* Test Item Value Reference Range Interpretation Comments SCAN RESULT (test code = 0716282) Result comments: METHICILLIN-SUSCEPTIBLE STAPH. AUREUS (MSSA) DETECTED Staphyloc occus aureus DETECTED MecA NOT DETECTED First line therapy: cefazolin or nafcill in (nafcillin preferred if Central Nervous System Infection) [facility] policy mandates Infectious Disease consultation for all patients wi th Staph. aureus bacteremia. Other organisms and resistance markers not containe d in this PCR panel cannot be excluded and follow-up of traditional culture resu lts is required. This sample was tested at the [facility] Clinical Microbiology Lab oratory using the [employer] Blood Culture ID Panel. This test is FDA stevo ared for in vitro diagnostic use and has been verified and approved by the [facility] Clinical Microbiology laboratory for clinical use. Reference Range: Not Detecte d BODY FLUID CULTURE + GRAM [id number] 12:28:00* Test Item Value Reference Range Interpretation Comments CULTURE (BEAKER) (test code = 1095) Clindamycin (test code = 10) S Erythromycin (test code = 4) S Linezolid (test code = 40) S Nitrofurantoin (test code = 23) S Oxacillin (test code = 14) S Rifampin (test code = 43) S Tetracycline (test code = 2) S Trimethoprim + Sulfamethoxazole (test code = 47) S Vancomycin (test code = 13) S CULTURE (BEAKER) (test code = 1095) A Staphylococcus aureus GRAM STAIN RESULT (BEAKER) (test code = 1123) From aer obic bottle only: gram positive cocci in clusters POCT-GLUCOSE [id number] 11:57:00* Test Item Value Reference Range Interpretation Comments POC-GLUCOSE METER (BEAKER) (test code = 1538) 176 mg/dL 70-[address] [facility] [address] [facility] [address] POCT-GLUCOSE [id number] 08:08:00* Test Item Value Reference Range Interpretation Comments POC-GLUCOSE METER (BEAKER) (test code = 1538) 147 mg/dL 70-[address] [facility] [address] [facility] [address] [id number] 06:12:00* Test Item Value Reference Range Interpretation Comments PHOSPHORUS (BEAKER) (test code = 604) 2.3 mg/dL 2.3-4.7 [id number] 06:12:00* Test Item Value Reference Range Interpretation Comments MAGNESIUM (BEAKER) (test code = 627) 1.2 mg/dL 1.6-2.6 L BASIC METABOLIC [id number] 06:12:00* Test Item Value Reference Range Interpretation Comments SODIUM (BEAKER) (test code = 381) 139 meq/L 136-145 POTASSIUM (BEAKER) (test code = 379) 3.0 meq/L 3.5-5.1 L CHLORIDE (BEAKER) (test code = 382) 96 meq/L 98-107 L CO2 (BEAKER) (test code = 355) 34 meq/L 22-29 H BLOOD UREA NITROGEN (BEAKER) (test code = 354) 14 mg/dL 7-21 CREATININE (BEAKER) (test code = 358) 0.63 mg/dL 0.57-1.25 GLUCOSE RANDOM (BEAKER) (test code = 652) 115 mg/dL 70-105 H CALCIUM (BEAKER) (test code = 697) 9.2 mg/dL 8.4-10.2 EGFR (BEAKER) (test code = 1092) 126 mL/min/1.73 sq m ESTIMATED GFR IS NOT ACCURATE CREATININE CLEARANCE IN PREDICTING GLOMERULAR FILTRATION RATE. ESTIMATED GFR IS NOT APPLICABLE FOR DIALYSIS PATIENTS. HEPATIC FUNCTION [id number] 06:12:00* Test Item Value Reference Range Interpretation Comments TOTAL PROTEIN (BEAKER) (test code = 770) 6.4 gm/dL 6.0-8.3 ALBUMIN (BEAKER) (test code = 1145) 2.9 g/dL 3.5-5.0 L BILIRUBIN TOTAL (BEAKER) (test code = 377) 1.0 mg/dL 0.2-1.2 BILIRUBIN DIRECT (BEAKER) (test code = 706) 0.6 mg/dL 0.1-0.5 H ALKALINE PHOSPHATASE (BEAKER) (test code = 346) 104 U/L 40-150 AST (SGOT) (BEAKER) (test code = 353) 24 U/L 5-34 ALT (SGPT) (BEAKER) (test code = 347) 28 U/L 6-55 CBC W/PLT COUNT & AUTO [id number] 06:02:00* Test Item Value Reference Range Interpretation Comments WHITE BLOOD CELL COUNT (BEAKER) (test code = 775) 5.4 K/ L 3.5- 10.5 RED BLOOD CELL COUNT (BEAKER) (test code = 761) 3.79 M/ L 4.63-6 .08 L HEMOGLOBIN (BEAKER) (test code = 410) 11.3 GM/DL 13.7-17.5 L HEMATOCRIT (BEAKER) (test code = 411) 34.0 % 40.1-51.0 L MEAN CORPUSCULAR VOLUME (BEAKER) (test code = 753) 89.7 fL 79. 0-92.2 MEAN CORPUSCULAR HEMOGLOBIN (BEAKER) (test code = 751) 29.8 pg 25.7-32.2 MEAN CORPUSCULAR HEMOGLOBIN CONC (BEAKER) (test code = 752) 33.2 GM/DL 32.3-36.5 RED CELL DISTRIBUTION WIDTH (BEAKER) (test code = 412) 13.4 % 11.6-14.4 PLATELET COUNT (BEAKER) (test code = 756) 156 K/CU MM 150-450 MEAN PLATELET VOLUME (BEAKER) (test code = 754) 10.2 fL 9.4-12 .4 NUCLEATED RED BLOOD CELLS (BEAKER) (test code = 413) 0 /100 WBC 0 -0 NEUTROPHILS RELATIVE PERCENT (BEAKER) (test code = 429) 61 % LYMPHOCYTES RELATIVE PERCENT (BEAKER) (test code = 430) 28 % MONOCYTES RELATIVE PERCENT (BEAKER) (test code = 431) 9 % EOSINOPHILS RELATIVE PERCENT (BEAKER) (test code = 432) 1 % BASOPHILS RELATIVE PERCENT (BEAKER) (test code = 437) 0 % NEUTROPHILS ABSOLUTE COUNT (BEAKER) (test code = 670) 3.27 K/ L 1.78-5.38 LYMPHOCYTES ABSOLUTE COUNT (BEAKER) (test code = 414) 1.53 K/ L 1.32-3.57 MONOCYTES ABSOLUTE COUNT (BEAKER) (test code = 415) 0.51 K/ L 0. 30-0.82 EOSINOPHILS ABSOLUTE COUNT (BEAKER) (test code = 416) 0.03 K/ L 0.04-0.54 L BASOPHILS ABSOLUTE COUNT (BEAKER) (test code = 417) 0.00 K/ L 0. 01-0.08 L IMMATURE GRANULOCYTES-RELATIVE PERCENT (BEAKER) (test code = 2801) 1 % 0-1 PROTHROMBIN [id number] 05:55:00* Test Item Value Reference Range Interpretation Comments PROTIME (BEAKER) (test code = 759) 17.6 seconds 11.7-14.7 H INR (BEAKER) (test code = 370) 1.5 <=5.9 RECOMMENDED COUMADIN/WARFARIN INR THERAPY RANGESSTANDARD DOSE: 2.0 - 3.0 Inclu rip: PROPHYLAXIS for venous thrombosis, systemic embolization; TREATMENT for zandra ous thrombosis and/or pulmonary embolus.HIGH RISK: Target INR is 2.5-3.5 for pat ients with mechanical heart valves.POCT-GLUCOSE [id number] 21:24:00* Test Item Value Reference Range Interpretation Comments POC-GLUCOSE METER (BEAKER) (test code = 1538) 180 mg/dL 70-[address] [facility] [address] [facility] [address] POCT-GLUCOSE [id number] 17:27:00* Test Item Value Reference Range Interpretation Comments POC-GLUCOSE METER (BEAKER) (test code = 1538) 147 mg/dL 70-110 H TESTED AT [place] [id number] [facility] [address] URINE [id number] 13:01:00* Test Item Value Reference Range Interpretation Comments CULTURE (BEAKER) (test code = 1095) No growth BODY FLUID [id number] 12:52:00* Test Item Value Reference Range Interpretation Comments CRYSTALS, BODY FLUID (BEAKER) (test code = 2165) No crystals seen. [id number] (BEAKER) (test code = 2607) Jesus Johnson MD (electronic signature) POCT-GLUCOSE [id number] 11:27:00* Test Item Value Reference Range Interpretation Comments POC-GLUCOSE METER (BEAKER) (test code = 1538) 122 mg/dL 70-[address] [facility] [address] [facility] [address] BASIC METABOLIC [id number] 06:13:00* Test Item Value Reference Range Interpretation Comments SODIUM (BEAKER) (test code = 381) 139 meq/L 136-145 POTASSIUM (BEAKER) (test code = 379) 2.6 meq/L 3.5-5.1 LL CHLORIDE (BEAKER) (test code = 382) 98 meq/L 98-107 CO2 (BEAKER) (test code = 355) 30 meq/L 22-29 H BLOOD UREA NITROGEN (BEAKER) (test code = 354) 21 mg/dL 7-21 CREATININE (BEAKER) (test code = 358) 0.63 mg/dL 0.57-1.25 GLUCOSE RANDOM (BEAKER) (test code = 652) 105 mg/dL 70-105 CALCIUM (BEAKER) (test code = 697) 9.4 mg/dL 8.4-10.2 EGFR (BEAKER) (test code = 1092) 126 mL/min/1.73 sq m ESTIMATED GFR IS NOT ACCURATE CREATININE CLEARANCE IN PREDICTING GLOMERULAR FILTRATION RATE. ESTIMATED GFR IS NOT APPLICABLE FOR DIALYSIS PATIENTS. [id number] 06:04:00* Test Item Value Reference Range Interpretation Comments PHOSPHORUS (BEAKER) (test code = 604) 1.7 mg/dL 2.3-4.7 L [id number] 06:04:00* Test Item Value Reference Range Interpretation Comments MAGNESIUM (BEAKER) (test code = 627) 1.4 mg/dL 1.6-2.6 L HEPATIC FUNCTION [id number] 06:04:00* Test Item Value Reference Range Interpretation Comments TOTAL PROTEIN (BEAKER) (test code = 770) 6.8 gm/dL 6.0-8.3 ALBUMIN (BEAKER) (test code = 1145) 3.1 g/dL 3.5-5.0 L BILIRUBIN TOTAL (BEAKER) (test code = 377) 1.0 mg/dL 0.2-1.2 BILIRUBIN DIRECT (BEAKER) (test code = 706) 0.5 mg/dL 0.1-0.5 ALKALINE PHOSPHATASE (BEAKER) (test code = 346) 106 U/L 40-150 AST (SGOT) (BEAKER) (test code = 353) 34 U/L 5-34 ALT (SGPT) (BEAKER) (test code = 347) 29 U/L 6-55 PROTHROMBIN [id number] 05:44:00* Test Item Value Reference Range Interpretation Comments PROTIME (BEAKER) (test code = 759) 14.9 seconds 11.7-14.7 H INR (BEAKER) (test code = 370) 1.2 <=5.9 RECOMMENDED COUMADIN/WARFARIN INR THERAPY RANGESSTANDARD DOSE: 2.0 - 3.0 Inclu rip: PROPHYLAXIS for venous thrombosis, systemic embolization; TREATMENT for zandra ous thrombosis and/or pulmonary embolus.HIGH RISK: Target INR is 2.5-3.5 for pat ients with mechanical heart valves.POCT-GLUCOSE [id number] 20:55:00* Test Item Value Reference Range Interpretation Comments POC-GLUCOSE METER (BEAKER) (test code = 1538) 168 mg/dL 70-[address] [facility] [address] [facility] [address] POCT-GLUCOSE [id number] 18:20:00* Test Item Value Reference Range Interpretation Comments POC-GLUCOSE METER (BEAKER) (test code = 1538) 153 mg/dL 70-110 H TESTED AT [address] [address] URINALYSIS W/ [id number] 14:33:00* Test Item Value Reference Range Interpretation Comments COLOR (BEAKER) (test code = 470) Yellow CLARITY (BEAKER) (test code = 469) Clear SPECIFIC GRAVITY UA (BEAKER) (test code = 468) 1.011 1.001-1 .035 PH UA (BEAKER) (test code = 467) 6.5 5.0-8.0 PROTEIN UA (BEAKER) (test code = 464) Negative Negative GLUCOSE UA (BEAKER) (test code = 365) Negative Negative KETONES UA (BEAKER) (test code = 371) Negative Negative BILIRUBIN UA (BEAKER) (test code = 462) Negative Negative BLOOD UA (BEAKER) (test code = 461) Negative Negative NITRITE UA (BEAKER) (test code = 465) Negative Negative LEUKOCYTE ESTERASE UA (BEAKER) (test code = 466) Negative Negat jesse UROBILINOGEN UA (BEAKER) (test code = 463) 3.0 mg/dL 0.2-1.0 H RBC UA (BEAKER) (test code = 519) 0 /HPF WBC UA (BEAKER) (test code = 520) < /HPF SOURCE(BEAKER) (test code = 2795) Urine, Clean Catch SEDIMENTATION [id number] 14:06:00* Test Item Value Reference Range Interpretation Comments SEDIMENTATION RATE, ERYTHROCYTE (BEAKER) (test code = 766) 114 mm/H R 0-40 H POCT-GLUCOSE [id number] 13:44:00* Test Item Value Reference Range Interpretation Comments POC-GLUCOSE METER (BEAKER) (test code = 1538) 122 mg/dL 70-[address] [facility] [address] [facility] [id number] BODY FLUID CELL COUNT WITH [id number] 13:34:00* Test Item Value Reference Range Interpretation Comments APPEARANCE FLUID (BEAKER) (test code = 510) Moderately Bloody Clear A COLOR FLUID (BEAKER) (test code = 511) Fajardo Colorless, Stra w A RBC FLUID (BEAKER) (test code = 513) 33751 /cu mm <=1 H ADJUSTED WBC FLUID (BEAKER) (test code = 1691) 56267 /cu mm <=5 H LINING CELLS (BEAKER) (test code = 1590) 0 /cu mm <=1 NEUTROPHILS FLUID (BEAKER) (test code = 1656) 86 % LYMPHS FLUID (BEAKER) (test code = 488) 4 % MONO/MACROPHAGE FLUID (BEAKER) (test code = 489) 10 % EOSINOPHILS FLUID (BEAKER) (test code = 491) 0 % BASO FLUID (BEAKER) (test code = 492) 0 % CONTAINER BODY FLUID (BEAKER) (test code = 2873) EDTA Tube CBC W/PLT COUNT & AUTO [id number] 11:29:00* Test Item Value Reference Range Interpretation Comments WHITE BLOOD CELL COUNT (BEAKER) (test code = 775) 9.9 K/ L 3.5- 10.5 RED BLOOD CELL COUNT (BEAKER) (test code = 761) 3.82 M/ L 4.63-6 .08 L HEMOGLOBIN (BEAKER) (test code = 410) 11.4 GM/DL 13.7-17.5 L HEMATOCRIT (BEAKER) (test code = 411) 32.9 % 40.1-51.0 L MEAN CORPUSCULAR VOLUME (BEAKER) (test code = 753) 86.1 fL 79. 0-92.2 MEAN CORPUSCULAR HEMOGLOBIN (BEAKER) (test code = 751) 29.8 pg 25.7-32.2 MEAN CORPUSCULAR HEMOGLOBIN CONC (BEAKER) (test code = 752) 34.7 GM/DL 32.3-36.5 RED CELL DISTRIBUTION WIDTH (BEAKER) (test code = 412) 13.7 % 11.6-14.4 PLATELET COUNT (BEAKER) (test code = 756) 193 K/CU MM 150-450 MEAN PLATELET VOLUME (BEAKER) (test code = 754) 10.3 fL 9.4-12 .4 NUCLEATED RED BLOOD CELLS (BEAKER) (test code = 413) 0 /100 WBC 0 -0 NEUTROPHILS RELATIVE PERCENT (BEAKER) (test code = 429) 76 % LYMPHOCYTES RELATIVE PERCENT (BEAKER) (test code = 430) 15 % MONOCYTES RELATIVE PERCENT (BEAKER) (test code = 431) 8 % EOSINOPHILS RELATIVE PERCENT (BEAKER) (test code = 432) 0 % BASOPHILS RELATIVE PERCENT (BEAKER) (test code = 437) 0 % NEUTROPHILS ABSOLUTE COUNT (BEAKER) (test code = 670) 7.58 K/ L 1.78-5.38 H LYMPHOCYTES ABSOLUTE COUNT (BEAKER) (test code = 414) 1.45 K/ L 1.32-3.57 MONOCYTES ABSOLUTE COUNT (BEAKER) (test code = 415) 0.78 K/ L 0. 30-0.82 EOSINOPHILS ABSOLUTE COUNT (BEAKER) (test code = 416) 0.00 K/ L 0.04-0.54 L BASOPHILS ABSOLUTE COUNT (BEAKER) (test code = 417) 0.01 K/ L 0. 01-0.08 IMMATURE GRANULOCYTES-RELATIVE PERCENT (BEAKER) (test code = 2801) 1 % 0-1 POCT-GLUCOSE [id number] 09:49:00* Test Item Value Reference Range Interpretation Comments POC-GLUCOSE METER (BEAKER) (test code = 1538) 154 mg/dL 70-[address] [facility] [address] [facility] [id number] COMPREHENSIVE METABOLIC [id number] 06:10:00* Test Item Value Reference Range Interpretation Comments TOTAL PROTEIN (BEAKER) (test code = 770) 8.0 gm/dL 6.0-8.3 Specimen moderately hemolyzed ALBUMIN (BEAKER) (test code = 1145) 3.3 g/dL 3.5-5.0 L Specimen moderately hemolyzed ALKALINE PHOSPHATASE (BEAKER) (test code = 346) 124 U/L 40-150 BILIRUBIN TOTAL (BEAKER) (test code = 377) 1.3 mg/dL 0.2-1.2 H Specimen moderately hemolyzed SODIUM (BEAKER) (test code = 381) 138 meq/L 136-145 POTASSIUM (BEAKER) (test code = 379) 4.0 meq/L 3.5-5.1 Specimen moderately hemolyzed CHLORIDE (BEAKER) (test code = 382) 96 meq/L 98-107 L CO2 (BEAKER) (test code = 355) 28 meq/L 22-29 BLOOD UREA NITROGEN (BEAKER) (test code = 354) 33 mg/dL 7-21 H CREATININE (BEAKER) (test code = 358) 0.83 mg/dL 0.57-1.25 Specimen moderately hemolyzed GLUCOSE RANDOM (BEAKER) (test code = 652) 189 mg/dL 70-105 H CALCIUM (BEAKER) (test code = 697) 9.9 mg/dL 8.4-10.2 AST (SGOT) (BEAKER) (test code = 353) 73 U/L 5-34 H Specimen moderately hemolyzed ALT (SGPT) (BEAKER) (test code = 347) 39 U/L 6-55 Specimen moderately hemolyzed EGFR (BEAKER) (test code = 1092) 91 mL/min/1.73 sq m ESTIMATED GFR IS NOT ACCURATE CREATININE CLEARANCE IN PREDICTING GLOMERULAR FILTRATION RATE. ESTIMATED GFR IS NOT APPLICABLE FOR DIALYSIS PATIENTS. C-REACTIVE [id number] 06:10:00* Test Item Value Reference Range Interpretation Comments C-REACTIVE PROTEIN (BEAKER) (test code = 676) 18.92 mg/dL 0.00-0.5 0 H CBC W/PLT COUNT & AUTO [id number] 05:59:00* Test Item Value Reference Range Interpretation Comments WHITE BLOOD CELL COUNT (BEAKER) (test code = 775) 13.0 K/ L 3.5- 10.5 H RED BLOOD CELL COUNT (BEAKER) (test code = 761) 4.21 M/ L 4.63-6 .08 L HEMOGLOBIN (BEAKER) (test code = 410) 12.6 GM/DL 13.7-17.5 L HEMATOCRIT (BEAKER) (test code = 411) 36.3 % 40.1-51.0 L MEAN CORPUSCULAR VOLUME (BEAKER) (test code = 753) 86.2 fL 79. 0-92.2 MEAN CORPUSCULAR HEMOGLOBIN (BEAKER) (test code = 751) 29.9 pg 25.7-32.2 MEAN CORPUSCULAR HEMOGLOBIN CONC (BEAKER) (test code = 752) 34.7 GM/DL 32.3-36.5 RED CELL DISTRIBUTION WIDTH (BEAKER) (test code = 412) 13.8 % 11.6-14.4 PLATELET COUNT (BEAKER) (test code = 756) 248 K/CU MM 150-450 MEAN PLATELET VOLUME (BEAKER) (test code = 754) 10.5 fL 9.4-12 .4 NUCLEATED RED BLOOD CELLS (BEAKER) (test code = 413) 0 /100 WBC 0 -0 NEUTROPHILS RELATIVE PERCENT (BEAKER) (test code = 429) 82 % LYMPHOCYTES RELATIVE PERCENT (BEAKER) (test code = 430) 13 % MONOCYTES RELATIVE PERCENT (BEAKER) (test code = 431) 4 % EOSINOPHILS RELATIVE PERCENT (BEAKER) (test code = 432) 0 % BASOPHILS RELATIVE PERCENT (BEAKER) (test code = 437) 0 % NEUTROPHILS ABSOLUTE COUNT (BEAKER) (test code = 670) 10.63 K/ L 1.78-5.38 H LYMPHOCYTES ABSOLUTE COUNT (BEAKER) (test code = 414) 1.65 K/ L 1.32-3.57 MONOCYTES ABSOLUTE COUNT (BEAKER) (test code = 415) 0.57 K/ L 0. 30-0.82 EOSINOPHILS ABSOLUTE COUNT (BEAKER) (test code = 416) 0.00 K/ L 0.04-0.54 L BASOPHILS ABSOLUTE COUNT (BEAKER) (test code = 417) 0.01 K/ L 0. 01-0.08 IMMATURE GRANULOCYTES-RELATIVE PERCENT (JOHANNAAKER) (test code = 2801) 1 % 0-1
[2020-03-13] MEDS ORDERED: ONDANSETRON HCL INJ 2MG/ML 2ML 2 MG/ML VIAL ONE (21:15)
[2020-03-13] MEDS: MORPHINE SULFATE INJ 4 MG/ML INJ 1ML IV PRN (21:17)
[2020-03-13 21:25] LABS: BASOPHILS % 0.5 % (0.0-1.0); EOSINOPHILS # (AUTO) 0.1 (0.0-0.4); EOSINOPHILS % 1.8 % (0.0-6.0); HEMATOCRIT 41.8 % (38.2-49.6); HEMOGLOBIN 13.3 g/dL (14.0-18.0); LYMPHOCYTES # (AUTO) 1.1 (1.0-3.2); LYMPHOCYTES % 17.3 % (18.0-39.1); MEAN CORPUSCULAR HEMOGLOBIN 26.7 pg (28-32); MEAN CORPUSCULAR HGB CONC 31.8 g/dL (31-35); MEAN CORPUSCULAR VOLUME 83.8 fL (81-99); MONOCYTES # (AUTO) 0.3 (0.2-0.8); MONOCYTES % 4.6 % (4.4-11.3); NEUTROPHILS # (AUTO) 4.6 (2.1-6.9); NEUTROPHILS % 75.5 % (38.7-80.0); PLATELET COUNT 188 x10e3/uL (140-360); RED BLOOD COUNT 4.99 x10e6/uL (4.3-5.7); RED CELL DISTRIBUTION WIDTH 15.9 % (11.7-14.4)
[2020-03-13 21:45] LABS: ALANINE AMINOTRANSFERASE 36 IU/L (0-55); ALBUMIN 4.5 g/dL (3.5-5.0); ALBUMIN/GLOBULIN RATIO 1.4 (0.8-2.0); ALKALINE PHOSPHATASE 84 IU/L (40-150); ANION GAP 19.8 mmol/L (8-16); BLOOD UREA NITROGEN 7 mg/dL (7-26); BUN/CREATININE RATIO 9 (6-25); CARBON DIOXIDE 19 mmol/L (22-29); CHLORIDE 105 mmol/L (98-107); CREATININE, SERUM 0.79 mg/dL (0.72-1.25); EST GLOMERULAR FILTRATION RATE > 60 ML/MIN (60-); GLUCOSE 116 mg/dL (74-118); POTASSIUM 3.8 mmol/L (3.5-5.1); SODIUM 140 mmol/L (136-145)
--- NOTE | 2020-03-13 22:51 | Diagnostic Imaging Report ---
EXAM: CT Abdomen and Pelvis WITH contrast INDICATION: Right lower quadrant pain, hernia COMPARISON: None. TECHNIQUE: Abdomen and pelvis were scanned utilizing a multidetector helical scanner from the lung base to the pubic symphysis after administration of IV contrast. Coronal and sagittal reformations were obtained. Routine protocol was performed. Scan was performed when during portal venous phase. IV CONTRAST: 100 mL of Isovue 370 ORAL CONTRAST: None COMPLICATIONS: None RADIATION DOSE: Total DLP: 458 mGy*cm Estimated effective dose: (DLP x 0.015 x size factor) mSv CTDIvol has been reviewed. It is below the limits set by the Radiation Protocol Committee (RPC). Dose modulation, iterative reconstruction, and/or weight based adjustment of the mA/kV was utilized to reduce the radiation dose to as low as reasonably achievable. FINDINGS: LINES and TUBES: None. LOWER THORAX: The distal esophagus is filled with fluid and has circumferential wall thickening. Triple vessel coronary artery calcific atherosclerosis. HEPATOBILIARY: Lobular/nodular hepatic surface contour. Caudate hypertrophy. Widened intrahepatic fissures.No focal hepatic lesions. No biliary ductal dilation. GALLBLADDER: Tiny calcified gallstone. No wall thickening. SPLEEN: No splenomegaly. PANCREAS: No focal masses or ductal dilatation. Mild peripancreatic edema. ADRENALS: No adrenal nodules KIDNEYS/URETERS: Kidneys enhance symmetrically. No hydronephrosis. There are scattered too small to characterize hypodensites, likely benign. No stones. GI TRACT: Mild fluid distention of small bowel loops proximal to the right inguinal hernia, The hernia contains distal small bowel and cecum and appendix. Edema within the mesentery of the herniated loops of bowel in the right inguinal hernia. No wall thickening. Mild prominence of rectal mucosal vessels. Appendix is normal. PELVIC ORGANS/BLADDER: Unremarkable. LYMPH NODES: No lymphadenopathy. VESSELS: Gastroesophageal varices. Large collateral ectatic splenic vessels.. Arterial calcifications. PERITONEUM / RETROPERITONEUM: Trace fluid in the right inguinal hernia. BONES: Chronic nonhealed nondisplaced right lower lumbar transverse process fractures. SOFT TISSUES: Large fat and bowel containing right inguinal hernia. Mild amount of fluid edema and congestion in the hernia sac. The hernia contains distal small bowel and cecum and appendix. IMPRESSION: 1. Large fat and bowel containing right inguinal hernia, mild edema in the hernia sac is suggestive of strangulation. Slightly dilated loops of small bowel proximal to the hernia is suspicious for low-grade obstruction. The hernia contains distal small bowel and cecum and appendix. 2. 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 Trace perihepatic ascites. 3. Esophagitis. 4. Mild peripancreatic edema can be due to acute interstitial edematous pancreatitis. 5. Prostatomegaly. 6. Cholelithiasis without cystic duct obstruction. Signed by: Yakov Tomlinson DO on 03/13/2020 10:48 PM
[2020-03-13] MEDS ORDERED: IOPAMIDOL 370 MG/ML 200 ML INFUS..BTL INJ ONE (23:25)
[2020-03-13] MEDS ORDERED: SODIUM CHLORIDE 0.9% 50ML 50 ML ONE (23:26)
[2020-03-13 23:30] LABS: CLARITY,URINE CLEAR (CLEAR); COLOR,URINE YELLOW (YELLOW); KETONES,URINE NEGATIVE (NEGATIVE); LEUKOCYTE ESTERASE ,URINE NEGATIVE (NEGATIVE); NITRITE,URINE NEGATIVE (NEGATIVE); PROTEIN,URINE DIPSTICK NEGATIVE (NEGATIVE); URINE UROBILINOGEN 0.2 mg/dL (0.2 - 1)
[2020-03-13] MEDS ORDERED: FENTANYL CITRATE/PF 100MCG/2 ML INJ IV ONE (23:30)
--- NOTE | 2020-03-13 23:30 | NUR ---
PT STATES PAIN IS WORSE AND HE FEELS DIZZY. PTS BP 64/41. DR HAMMOND NOTIFIED, NEW ORDERS GIVEN AND CARRIED OUT. PLEASE SEE MAR.
[2020-03-13 23:31] LABS: BACTERIA,URINE FEW /HPF; BILIRUBIN,URINE NEGATIVE (NEGATIVE); EPITHELIAL CELLS,URINE FEW /LPF; RBC,URINE 0-5 /HPF (0-5); WBC,URINE (MAN) 0-5 /HPF (0-5)
[2020-03-13] MEDS ORDERED: PIPER-TAZ 3.375 GM 50 ML IV STA (23:34)
[2020-03-13] MEDS ORDERED: SODIUM CHLORIDE 0.9% 1000ML 1,000 ML ONE (23:42)
[2020-03-13] MEDS ORDERED: SODIUM CHLORIDE 0.9% 1000ML 1,000 ML IV SCH (23:45)
[2020-03-14] VITALS (20 sets, daily range): BP systolic 117–155; BP diastolic 49–90
--- NOTE | 2020-03-14 00:30 | NUR ---
DR MICHAELS AT BEDSIDE AT THIS TIME. PT GOING FOR EMERGENCY SURGERY FOR INCARCERATED HERNIA.
[2020-03-14] MEDS ORDERED: SUGAMMADEX SODIUM 200 MG/2 ML VIAL IV ONE (01:04)
[2020-03-14] MEDS ORDERED: BUPIVACAINE HCL 0.5% INJ 30 ML VIAL INJ ONE (01:07)
--- NOTE | 2020-03-14 01:15 | NUR ---
CARE TRANSFERRED OVER TO OR NURSE AT THIS TIME.
[2020-03-14 01:32] LABS: CREATINE KINASE 87 IU/L (30-200)
[2020-03-14] MEDS ORDERED: HYDROCODONE/APAP 5MG-325MG TAB PO PRN (02:45)
--- OUTSIDE RECORDS SUMMARY | 2020-03-14 02:56 | XMS REPORT | Continuity of Care Document ---
Author Author [facility] t Organization [facility] Address [address] [place] [address] Phone Unavailable Care Team Providers Care Cardiac Nurse Name Role Phone LAISHA TERAN PCP Roberto Carlos HAMMOND Attphys Unavailable Yared CROSS, [facility] Attphys PIPPA COOK Attphys Unavailable MURRAY MARIE Admphys Unavailable Payers Payer Name Policy Type Policy Number Effective Date Expiration Date Roberto Carlos may [employer] Medicare Advantage [id number] [facility] Problems Condition Name Condition Details Condition Category Status Onset Date Resolution Date Last Treatment Date Treating Clinician Comments Source Achalasia Achalasia Disease Active 2017-09-30 00:00:00 [facility] Septic arthritis Septic arthritis Disease Active 2017-07-15 00:00:00 [facility] Pyogenic arthritis of left knee joint, due to unspecif ied organism Pyogenic arthritis of left knee joint, due to unspecified organism Disease Ac tive 2017-07-13 00:00:00 [facility] BPH (benign prostatic hyperplasia) BPH (benign prostatic hyperpl akira) Disease Active 2014-11-12 00:00:00 [facility] Chest pain Problem Active [facility] Allergies, Adverse Reactions, Alerts Allergy Name Allergy Type Status Severity Reaction(s) Onset Date Inacti ve Date Treating Clinician Comments Source MIDALOZAM Propensity to adverse reactions Active para doxical reaction 2020-03-05 00:00:00 [facility] Midazolam Propensity to adverse reactions Active 2017-07 00:00:00 Paradoxical reaction [facility] No Known Allergies DA Active U 2017-07-09 00:00:[address] [facility] Social History Social Habit Start Date Stop Date Quantity Comments Source Sex Assigned At [facility] Cigarettes smoked current (pack per day) - Reported 00:00:00 2018-05-30 00:00:00 [facility] Cigarette pack-years 2018-05-30 00:00:00 2018-05-30 00:00:00 [facility] History of tobacco use 2017-07-09 00:00:00 Current smoker [facility] Smoking Status Start Date Stop Date Source Former smoker 2018-05-30 00:00:00 2018-05-30 00:00:00 [facility] Medications Ordered Medication Name Filled Medication Name Start Date Stop Da te Current Medication? Ordering Clinician Indication Dosage Frequency Signature (SIG) Comments Components Source docusate sodium (COLACE) 100 MG capsule 2018-05-30 13:14:40 Yes 100mg Q.5D Take 100 mg by mouth 2 (two) times daily. [facility] leuprolide acetate (LUPRON DEPOT, 6 MONTH, IM) 2018-05-30 13:14: 40 Yes Inject intramuscularly. [facility] traMADol (ULTRAM) 50 mg tablet 2018-05-30 13:08:16 Yes 50mg Take 50 mg by mouth every 6 (six) hours as needed for Pain. [facility] ranitidine (ZANTAC) 150 MG capsule 2018-05-30 12:51:45 Yes 150mg Q.5D Take 150 mg by mouth 2 (two) times daily. [facility] potassium chloride 25 mEq Pack 2018-05-30 12:51:44 Yes Take by mouth. [facility] bicalutamide (CASODEX) 50 MG tablet 2018-05-30 12:51:44 Yes 50mg Q.[id number] Take 50 mg by mouth 3 (three) times daily. [facility] denosumab (XGEVA) 120 mg/1.7 mL (70 mg/mL) injection 2 12:51:44 Yes Inject subcutaneously. [facility] aspirin 325 MG tablet 2017-09-30 11:32:53 Yes 325mg QD Take 325 mg by mouth daily. [facility] amLODIPine (NORVASC) 10 MG tablet 2017-07-13 06:37:06 Yes high blood pressure 10mg QD Take 10 mg by mouth daily. [facility] hydroCHLOROthiazide (HYDRODIURIL) 25 MG tablet 2017-03-14 00:00: 00 Yes 25mg QD Take 25 mg by mouth daily. [facility] tamsulosin (FLOMAX) 0.4 mg Cp24 24 hr capsule 2016-08-24 00:00:0 0 Yes .4mg QD Take 0.4 mg by mouth daily. [facility] calcium carbonate-vitamin D3 (OSCAL-D) 500 mg(1,250mg) -200 unit per tablet 2016-03-20 00:00:00 Yes 1{tbl} Q.5D Take 1 tablet by mouth 2 (two) times daily. [facility] diphenhydrAMINE (BENADRYL) 25 mg tablet 2014-10-29 10:47:26 Yes 25mg Take 25 mg by mouth every 3 (three) hours. [facility] magnesium oxide-Mg AA chelate (MAGNESIUM, AMINO ACID CHELATE ,) 133 mg Tab 2014-10-29 10:47:26 Yes 250mg Q.[id number] Take 250 mg by mouth 3 (three) times daily. [facility] coenzyme Q10 (CO Q-10) 100 mg capsule 2014-10-29 10:47:26 Y es 100mg QD Take 100 mg by mouth daily. [facility] Calcium Carbonate/Vitamin D3 (Os-Won 500+D Tablet) 1 E ach TABLET Calcium Carbonate/Vitamin D3 (Os-Won 500+D Tablet) 1 Each TABLET Yes 1 Twice A Day [facility] Cyanocobalamin (Vitamin B-12) (Vitamin B-12) 1,000 Mcg TAB.SUBL Cyanocobalamin (Vitamin B-12) (Vitamin B-12) 1,000 Mcg TAB.SUBL Yes 5 00 Daily [facility] Diphenhydramine Hcl Diphenhydramine Hcl Yes 25 As Needed [facility] Famotidine Famotidine Yes 20 Twice A Day [facility] Leuprolide Acetate (Lupron Depot) 45 Mg SYRINGEKIT Jackelin prolide Acetate (Lupron Depot) 45 Mg SYRINGEKIT Yes 45 Use As Directe d [facility] Lisinopril Lisinopril Yes 10 Daily [facility] Magnesium Oxide Magnesium Oxide Yes 400 Twice A Day [facility] Potassium Chloride Potassium Chloride Yes 15 Us e As Directed [facility] Prednisone Prednisone Yes 5 Twice A Day [facility] Tamsulosin Hcl (Flomax*) 0.4 Mg CAP Tamsulosin Hcl (Flomax*) 0.4 Mg C AP Yes .4 Daily [facility] Ubidecarenone (Co Q-10) 100 Mg CAPSULE Ubidecarenone (Co Q-10) 1 00 Mg CAPSULE Yes 100 Use As Directed [facility] Vitamin D Vitamin D Yes 1000 Daily [facility] Amlodipine Besylate Amlodipine Besylate 2020-03-06 00:00:00 No 10 Daily [facility] Vital Signs Vital Name Observation Time Observation Value Comments Source Body Temperature 2020-03-06 16:00:00 98.5 [degF] [facility] Weight 2020-03-06 05:01:00 162.50 [lb_av] [facility] BMI (Body Mass Index) 2020-03-06 05:01:00 26.2 kg/m2 [facility] Procedures Procedure Date / Time Performed Performing Clinician Reid e Computed tomography of brain without radiopaque contrast 2020-03 00:00:00 [facility] Plan of Care Planned Activity Planned Date Details Comments Source Instructions Chest Pain - Noncardiac [facility] Instructions Dizziness [facility] Encounters Start Date/Time End Date/Time Encounter Type Admission Type [facility] Care Department Encounter ID Source 2020-03-05 23:42:00 2020-03-06 17:51:00 Discharged Inpatient (obs) RENA HAMMOND [facility] [id number] I [facility] 2019-04-15 10:42:13 2019-04-15 16:08:46 Office Visit Elvira Gutierrez [facility] [id number] Results Test Description Test Time Test Comments Results Result Comments Source CT ABDOMEN/PELVIS W 2020-03-13 22:36:00 [facility] [address] [address] Patient Name: GABRIELE SHAIKH MR #: [id number] : 1945 Age/Sex: 74/M Req #: [id number] Adm Physician: Ordered by: RENA HAMMOND DO Report #: [id number] Location: ER Room/Bed: Procedure: [id number] CT/CT ABDOMEN/PELVIS W Exam Date: 03/13/20 Exam Time: 2214 REPORT STATUS: Signed EXAM: CT Abdomen and Pelvis WITH contrast INDICATION: Right lower quadrant pain, hernia COMPARISON: None. TECHNIQUE: Abdomen and pelvis were scanned utilizing a multidetector helical scanner from the lung base to the pubic symphysis after administration of IV contrast. Coronal and sagittal reformations were obtained. Routine protocol was performed. Scan was performed when during portal venous phase. IV CONTRAST: 100 mL of Isovue 370 ORAL CONTRAST: None COMPLICATIONS: None RADIATION DOSE: Total DLP: 458 mGy*cm Estimated effective dose: (DLP x 0.015 x size factor) mSv CTDIvol has been reviewed. It is below the limits set by the Radiation Protocol Committee (RPC). Dose modulation, iterative reconstruction, and/or weight based adjustment of the mA/kV was utilized to reduce the radiation dose to as low as reasonably achievable. FINDINGS: LINES and TUBES: None. LOWER THORAX: The distal esophagus is filled with fluid and has circumferential wall thickening. Triple vessel coronary artery calcific atherosclerosis. HEPATOBILIARY: Lobular/nodular hepatic surface contour. Caudate hypertrophy. Widened intrahepatic fissures.No focal hepatic lesions. No biliary ductal dilation. GALLBLADDER: Tiny calcified gallstone. No wall thickening. SPLEEN: No splenomegaly. PANCREAS: No focal masses or ductal dilatation. Mild peripancreatic edema. ADRENALS: No adrenal nodules KIDNEYS/URETERS: Kidneys enhance symmetrically. No hydronephrosis. There are scattered too small to characterize hypodensites, likely benign. No stones. GI TRACT: Mild fluid distention of small bowel loops proximal to the right inguinal hernia, The hernia contains distal small bowel and cecum and appendix. Edema within the mesentery of the herniated loops of bowel in the right inguinal hernia. No wall thickening. Mild prominence of rectal mucosal vessels. Appendix is normal. PELVIC ORGANS/BLADDER: Unremarkable. LYMPH NODES: No lymphadenopathy. VESSELS: Gastroesophageal varices. Large collateral ectatic splenic vessels.. Arterial calcifications. PERITONEUM / RETROPERITONEUM: Trace fluid in the right inguinal hernia. BONES: Chronic nonhealed nondisplaced right lower lumbar transverse process fractures. SOFT TISSUES: Large fat and bowel containing right inguinal hernia. Mild amount of fluid edema and congestion in the hernia sac. The hernia contains distal small bowel and cecum and appendix. IMPRESSION: 1. Large fat and bowel containing right inguinal hernia, mild edema in the hernia sac is suggestive of strangulation. Slightly dilated loops of small bowel proximal to the hernia is suspicious for low-grade obstruction. The hernia contains distal small bowel and cecum and appendix. 2. 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 Trace perihepatic ascites. 3. Esophagitis. 4. Mild peripancreatic edema can be due to acute interstitial edematous pancreatitis. 5. Prostatomegaly. 6. Cholelithiasis without cystic duct obstruction. Signed by: Yakov Valencia DO on 03/13/2020 10:48 PM Dictated By: YAKOV VALENCIA DO 47 Transcribed By: SIL on 03/13/202247 COPY TO: RENA HAMMOND DO Serum or plasma creatine kinase measurement (enzymatic activity/volume) 2020-03-06 14:21:00 Test Item Creatine Kinase (test code = 2157-6) 47 30-200 [facility] creatine kinase MB measurement (mass/volume)2020-03-06 14:21:00* Test Item Value Reference Range Interpretation Comments Creatine Kinase MB (test code = 40945-7) 2.10 0-5.0 [facility] CenterTroponin I measurement by highly sensitive enzyme illpogkkfuj1224-79-29 14:21:00* Test Item Value Reference Range Interpretation Comments Troponin I (test code = 56973-8) 0.021 0-0.300 [facility] triglyceride measurement (mass/volume)2020-03-06 08:10:00* Test Item Value Reference Range Interpretation Comments Triglycerides Level (test code = 2571-8) 179 0-149 [facility] cholesterol measurement (mass/volume)2020-03-06 08:10:00* Test Item Value Reference Range Interpretation Comments Cholesterol Level (test code = 2093-3) 150 0-199 Less than 200 mg/dL Low Nqrt339 - 239 mg/dL Borderline Svzq781 m g/dl and greater High Risk [facility] cholesterol in LDL measurement (mass/volume) 2020-03-06 08:10:00* Test Item Value Reference Range Interpretation Comments LDL Cholesterol (test code = 2089-1) 76 60-130 [facility] cholesterol in HDL measurement (mass/volume)2020-03-06 08:10:00* Test Item Value Reference Range Interpretation Comments HDL Cholesterol (test code = 2085-9) 38 40-60 [facility] total cholesterol/cholesterol in HDL mass fnwvy5491-29-61 08:10:00* Test Item Value Reference Range Interpretation Comments Cholesterol/HDL Ratio (test code = 9830-1) 3.9 3.9-4.7 [facility] Center[facility]IN [id number] 21:45:00 [facility] [address] [address] Patient Name: GABRIELE SHAIKH MR #: [id number] : 1945 Age/Sex: 74/M Req #: [id number] Adm Physician: Ordered by: RENA HAMMOND DO Report #: [id number] Location: ER Room/Bed: Procedure: [id number] CT/CT BRAIN WO Exam Date: 03/05/20 Exam [...] Count (test code = 6690-2) 7.86 4.8-10.8 [facility]Bl[facility] erythrocytes automated count (number/volume)2020-03-05 21:40:00* Test Item Value Reference Range Interpretation Comments Red Blood Count (test code = 789-8) 4.50 4.3-5.7 [facility] CenterBlood hemoglobin measurement (moles/volume)2020-03-05 21:40:00* Test Item Value Reference Range Interpretation Comments Hemoglobin (test code = 31123-5) 12.1 14.0-18.0 [facility] CenterAutomated blood hematocrit (volume fraction)2020-03-05 21:40:00* Test Item Value Reference Range Interpretation Comments Hematocrit (test code = 4544-3) 37.6 38.2-49.6 [facility] CenterAutomated erythrocyte mean corpuscular vxvwok5855-97-42 21:40:00* Test Item Value Reference Range Interpretation Comments Mean Corpuscular Volume (test code = 787-2) 83.6 81-99 [facility] CenterAutomated erythrocyte mean corpuscular hemoglobin (mass per erythrocyte)2020-03-05 21:40:00* Test Item Value Reference Range Interpretation Comments Mean Corpuscular Hemoglobin (test code = 785-6) 26.9 28-32 [facility] CenterAutomated erythrocyte mean corpuscular hemoglobin concentration measurement (mass/volume)2020-03-05 21:40:00* Test Item Value Reference Range Interpretation Comments Mean Corpuscular Hemoglobin Concent (test code = 786-4) 32.2 31-35 [facility] CenterRDW PmiRm-Rpr9003-12-05 21:40:00* Test Item Value Reference Range Interpretation Comments Red Cell Distribution Width (test code = 90593-0) 15.8 11.7 -14.4 [facility] CenterAutomated blood platelet count (count/volume)2020-03-05 21:40:00* Test Item Value Reference Range Interpretation Comments Platelet Count (test code = 777-3) 179 140-360 [facility] CenterAutomated blood segmented neutrophil count as percentage of total bwzvtbbped0996-34-91 21:40:00* Test Item Value Reference Range Interpretation Comments Neutrophils (%) (Auto) (test code = 15929-1) 71.0 38.7-80.0 [facility] CenterAutomated blood lymphocyte count as percentage ot total nqoxfcyjdz0816-88-50 21:40:00* Test Item Value Reference Range Interpretation Comments Lymphocytes (%) (Auto) (test code = 736-9) 16.9 18.0-39.1 [facility] CenterAutomated blood monocyte count as percentage of total qusmwmslqh1321-30-49 21:40:00* Test Item Value Reference Range Interpretation Comments Monocytes (%) (Auto) (test code = 5905-5) 8.5 4.4-11.3 [facility] CenterAutomated blood eosinophil count as percentage of total ruslivrppk6116-07-95 21:40:00* Test Item Value Reference Range Interpretation Comments Eosinophils (%) (Auto) (test code = 713-8) 2.4 0.0-6.0 [facility] CenterAutomated blood basophil count as percentage of total scngupnfee2400-94-68 21:40:00* Test Item Value Reference Range Interpretation Comments Basophils (%) (Auto) (test code = 706-2) 0.8 0.0-1.0 [facility] CenterFluoroscopic procedure less than one hour naojhjlb8970-16-29 21:40:00* Test Item Value Reference Range Interpretation Comments IM GRANULOCYTES % (test code = IM GRANULOCYTES %) 0.4 0.0- 1.0 [facility] CenterAutomated blood neutrophil count 2020-03-05 21:40:00* Test Item Value Reference Range Interpretation Comments Neutrophils # (Auto) (test code = 751-8) 5.6 2.1-6.9 [facility] CenterBlood lymphocytes count (number/volume) 2020-03-05 21:40:00* Test Item Value Reference Range Interpretation Comments Lymphocytes # (Auto) (test code = 87769-0) 1.3 1.0-3.2 [facility] CenterBlood monocytes automated count (number/volume)2020-03-05 21:40:00* Test Item Value Reference Range Interpretation Comments Monocytes # (Auto) (test code = 742-7) 0.7 0.2-0.8 [facility] CenterAutomated blood eosinophil count 2020-03-05 21:40:00* Test Item Value Reference Range Interpretation Comments Eosinophils # (Auto) (test code = 711-2) 0.2 0.0-0.4 [facility] CenterAutomated blood basophil count (count/volume)2020-03-05 21:40:00* Test Item Value Reference Range Interpretation Comments Basophils # (Auto) (test code = 704-7) 0.1 0.0-0.1 [facility] CenterFluoroscopic procedure less than one hour agepmsno3266-05-28 21:40:00* Test Item Value Reference Range Interpretation Comments Absolute Immature Granulocyte (auto (jami t code = Absolute Immature Granulocyte (auto) 0.03 0-0.1 [facility] sodium measurement (moles/volume)2020-03-05 21:40:00* Test Item Value Reference Range Interpretation Comments Sodium Level (test code = 2951-2) 136 136-145 [facility] potassium measurement (moles/volume)2020-03-05 21:40:00* Test Item Value Reference Range Interpretation Comments Potassium Level (test code = 2823-3) 4.2 3.5-5.1 [facility] chloride measurement (moles/volume)2020-03-05 21:40:00* Test Item Value Reference Range Interpretation Comments Chloride Level (test code = 2075-0) 102 98-107 [facility] plasma carbon dioxide, total measurement (moles/volume)2020-03-05 21:40:00* Test Item Value Reference Range Interpretation Comments Carbon Dioxide Level (test code = 2028-9) 20 22-29 [facility] plasma anion [id number] 21:40:00* Test Item Value Reference Range Interpretation Comments Anion Gap (test code = 75312-3) 18.2 8-16 [facility] urea nitrogen measurement (mass/volume)2020-03-05 21:40:00* Test Item Value Reference Range Interpretation Comments Blood Urea Nitrogen (test code = 3094-0) 27 7-26 [facility] creatinine measurement (mass/volume)2020-03-05 21:40:00* Test Item Value Reference Range Interpretation Comments Creatinine (test code = 2160-0) 1.10 0.72-1.25 [facility] urea nitrogen/creatinine mass nimer1192-09-45 21:40:00* Test Item Value Reference Range Interpretation Comments BUN/Creatinine Ratio (test code = 3097-3) 25 6-25 [facility] CenterEstimated glomerular filtration rate (GFR) yicogdkjyxxmq8455-92-96 21:40:00* Test Item Value Reference Range Interpretation Comments Estimat Glomerular Filtration Rate (test code = 020794756) > 60 >60 Ranges were taken from the National Kidney Disease Education Program and the [facility] literature.Reference ranges:60 or greater: Swzyxx12-41 ( for 3 consecutive months): Chronic kidney disease 15 or less: Kidney failureHCA [facility] Healthcare Medical CenterGlucose alkdctxirwr4012-57-74 21:40:00* Test Item Value Reference Range Interpretation Comments Glucose Level (test code = XDA4195) 112 74-118 [facility] calcium measurement (mass/volume)2020-03-05 21:40:00* Test Item Value Reference Range Interpretation Comments Calcium Level (test code = 04072-4) 9.8 8.4-10.2 [facility] total bilirubin measurement (mass/volume)2020-03-05 21:40:00* Test Item Value Reference Range Interpretation Comments Total Bilirubin (test code = 1975-2) 0.8 0.2-1.2 [facility] CenterFluoroscopic procedure less than one hour vwlwvnqd6510-12-97 21:40:00* Test Item Value Reference Range Interpretation Comments Aspartate Amino Transf (AST/SGOT) (test code = Aspartate Amino Transf (AST/SGOT)) 60 5-34 [facility] plasma alanine aminotransferase measurement (enzymatic activity/volume)2020-03-05 21:40:00* Test Item Value Reference Range Interpretation Comments Alanine Aminotransferase (ALT/SGPT) (test code = 1742-6) 41 0-55 [facility] protein measurement (mass/volume)2020-03-05 21:40:00* Test Item Value Reference Range Interpretation Comments Total Protein (test code = 2885-2) 6.8 6.5-8.1 [facility] albumin measurement (mass/volume)2020-03-05 21:40:00* Test Item Value Reference Range Interpretation Comments Albumin (test code = 1751-7) 4.1 3.5-5.0 [facility] CenterPlasma globulin measurement (mass/volume) 2020-03-05 21:40:00* Test Item Value Reference Range Interpretation Comments Globulin (test code = 96923-0) 2.7 2.3-3.5 [facility] albumin/globulin mass [id number] 21:40:00* Test Item Value Reference Range Interpretation Comments Albumin/Globulin Ratio (test code = 1759-0) 1.5 0.8-2.0 [facility] alkaline phosphatase measurement (enzymatic activity/volume)2020-03-05 21:40:00* Test Item Value Reference Range Interpretation Comments Alkaline Phosphatase (test code = 6768-6) 66 40-150 [facility] CenterFL, TROLLEY OPERATOR IN OR/30 MINUTE INCREMENTS 2018-05-30 15:42:00Reason for exam:->DYSPHAGIAFINAL REPORT Nondiagnostic exam. Radiology provided fluoroscopy for ERCP performed by Dr. Parrish. Neither radiologist presence nor interpretation were requested. Please refer to the operative report for further information. Fluoroscopy time was 2.7 minutes. Total # of images: 8 Signed: JR Morales Robert MDReport Verified Date/Time: 05/30/2018 15:42:00 Reading Location: [address] Consult Reading Room , TROLLEY OPERATOR IN OR/30 MINUTE [id number] 17:53:00Reason for exam:->acahalaciaAddendum BeginsREPORT STATUS:A Addendum: Fluoroscopy nonspecific dated September 30, 2017 Signed: Nolberto Will Verified Date/Time: 09/30/2017 17:53:22 Reading Location: [address] Radiology Reading RoomAddendum EndsFINAL REPORT Fluoroscopy nonspecific dated September 30, 2009 18 Comment: Total fluoroscopy time was 2.7 minutes. Total number of fluoroscopy images were 7. The fluoroscopy study was provided to Dr. Parrish for intraoperative procedure. No radiologist was present during the examination. Signed: Nolberto Will Verified Date/Time: 09/30/2017 17:43:25 Reading Location: [address] Radiology Reading Room D [id number] 23:00:00* Test Item Value Reference Range Interpretation Comments CULTURE (BEAKER) (test code = 1095) No growth in 5 days BLOOD [id number] 23:00:00* Test Item Value Reference Range Interpretation Comments CULTURE (BEAKER) (test code = 1095) No growth in 5 days BLOOD [id number] 10:46:00* Test Item Value Reference Range Interpretation [...] only: gram positive cocci in clusters BLOOD [id number] 10:45:00* Test Item Value Reference Range Interpretation [...] only: gram positive cocci in clusters POCT-GLUCOSE [id number] 09:40:00* Test Item Value Reference Range Interpretation Comments POC-GLUCOSE METER (BEAKER) (test code = 1538) 128 mg/dL 70-[address] [facility] [address] [facility] [address] POCT-GLUCOSE [id number] 22:07:00* Test Item Value Reference Range Interpretation Comments POC-GLUCOSE METER (BEAKER) (test code = 1538) 102 mg/dL 70-110 TESTED AT [place] [id number] [facility] [address] BASIC METABOLIC [id number] 06:06:00* Test Item Value Reference Range Interpretation [...] DIALYSIS PATIENTS. CBC W/PLT COUNT & AUTO [id number] 05:40:00* Test Item Value Reference Range Interpretation [...] = 2801) 2 % 0-1 H POCT-GLUCOSE [id number] 21:41:00* Test Item Value Reference Range Interpretation Comments POC-GLUCOSE METER (BEAKER) (test code = 1538) 199 mg/dL 70-110 H TESTED AT [place] [id number] [address] EOSINOPHIL SMEAR, [id number] 20:56:00* Test Item Value Reference Range Interpretation Comments EOSINOPHIL SMEAR, URINE (BEAKER) (test code = 1851) No EOS seen No EOS seen POCT-GLUCOSE [id number] 16:37:00* Test Item Value Reference Range Interpretation Comments POC-GLUCOSE METER (BEAKER) (test code = 1538) 141 mg/dL 70-[address] [facility] [address] [facility] [address] RAD, ANKLE, 2 VIEWS, [id number] 15:22:00Reason for exam:->pain assess for effusionFINAL REPORT Ankle, left, two views INDICATION: Pain. Effusion. COMPARISON: None available IMPRESSION: There is no evidence of acute fracture, dislocation, or destructive osseous lesion. Mild ankle joint arthritic changes are suspected with tiny osteophytes. There are incidental vascular calcifications. No significant ankle joint effusion is seen radiographically. Signed: Elias Villagran Verified Date/Time: 07/17/2017 15:22:52 Reading Location: [address] Consult Reading Room - GLUCOSE [id number] 09:24:00* Test Item Value Reference Range Interpretation Comments POC-GLUCOSE METER (BEAKER) (test code = 1538) 119 mg/dL 70-[address] [facility] [address] [facility] [address] BASIC METABOLIC [id number] 06:29:00* Test Item Value Reference Range Interpretation [...] DIALYSIS PATIENTS. CBC W/PLT COUNT & AUTO [id number] 05:52:00* Test Item Value Reference Range Interpretation [...] = 2801) 2 % 0-1 H POCT-GLUCOSE [id number] 22:25:00* Test Item Value Reference Range Interpretation Comments POC-GLUCOSE METER (BEAKER) (test code = 1538) 136 mg/dL 70-110 H TESTED AT [address] [address] POCT-GLUCOSE [id number] 19:26:00* Test Item Value Reference Range Interpretation Comments POC-GLUCOSE METER (BEAKER) (test code = 1538) 114 mg/dL 70-110 H TESTED AT [address] [address] POCT-GLUCOSE [id number] 15:02:00* Test Item Value Reference Range Interpretation Comments POC-GLUCOSE METER (BEAKER) (test code = 1538) 141 mg/dL 70-110 H TESTED AT [facility] [address] [facility] [address] BLOOD [id number] 09:31:00* Test Item Value Reference Range Interpretation [...] GRAM STAIN RESULT (BEAKER) (test code = 994852) From a naerobic bottle only: gram positive cocci in clusters BLOOD [id number] 09:29:00* Test Item Value Reference Range Interpretation [...] (nafcillin prefe rred if Central Nervous System Infection)[facility] policy mandates Infectious Disease consultation for all patients with Staph. aureus kiko teremia.Other organisms and resistance markers not contained in this PCR panel c annot be excluded and follow-up of traditional culture results is required. Thi s sample was tested at the [facility] Laboratory using the [employer] Blood Culture ID Panel. This test is FDA cleared for in vitro diag nostic use and has been verified and approved by the [facility] Clinical Microbiology laboratory for clinical use. Reference Range: Not DetectedPOCT-GLUCOSE METER 2017-07-16 08:31:00* Test Item Value Reference Range Interpretation Comments POC-GLUCOSE METER (BEAKER) (test code = 1538) 100 mg/dL 70-[address] [facility] [address] [facility] [address] [id number] 07:59:00* Test Item Value Reference Range Interpretation Comments PHOSPHORUS (BEAKER) (test code = 604) 2.2 mg/dL 2.3-4.7 L [id number] 07:59:00* Test Item Value Reference Range Interpretation Comments MAGNESIUM (BEAKER) (test code = 627) 1.2 mg/dL 1.6-2.6 L BASIC METABOLIC [id number] 07:59:00* Test Item Value Reference Range Interpretation [...] NOT APPLICABLE FOR DIALYSIS PATIENTS. HEPATIC FUNCTION [id number] 07:59:00* Test Item Value Reference Range Interpretation [...] = 347) 61 U/L 6-55 H PROTHROMBIN [id number] 07:43:00* Test Item Value Reference Range Interpretation Comments PROTIME (BEAKER) (test code = 759) 15.1 seconds 11.7-14.7 H INR (BEAKER) (test code = 370) 1.2 <=5.9 RECOMMENDED COUMADIN/WARFARIN INR THERAPY RANGESSTANDARD DOSE: 2.0 - 3.0 Inclu rip: PROPHYLAXIS for venous thrombosis, systemic embolization; TREATMENT for zandra ous thrombosis and/or pulmonary embolus.HIGH RISK: Target INR is 2.5-3.5 for pat ients with mechanical heart valves.POCT-GLUCOSE [id number] 21:31:00* Test Item Value Reference Range Interpretation Comments POC-GLUCOSE METER (BEAKER) (test code = 1538) 168 mg/dL 70-110 H TESTED AT [address] [address] RAD, CHEST, 1 VIEW, NON [id number] 17:18:00Reason for exam:->check picc placement Should this [...] in the superior vena cava. Signed: Nolberto Will MDReport Verified Date/Time: 07/15/2017 17:18:19 Reading Location: [address] Consult Reading Room -GLUCOSE [id number] 17:15:00* Test Item Value Reference Range Interpretation Comments POC-GLUCOSE METER (BEAKER) (test code = 1538) 204 mg/dL 70-[address] [facility] [address] [facility] [address] MISCELLANEOUS LAB [id number] 14:38:00* Test Item Value Reference Range Interpretation Comments SCAN RESULT (test code = 4530760) Result comments: METHICILLIN-SUSCEPTIBLE STAPH. AUREUS (MSSA) DETECTED Staphyloc occus aureus DETECTED MecA NOT DETECTED First line therapy: cefazolin or nafcill in (nafcillin preferred if Central Nervous System Infection) [facility] policy mandates Infectious Disease consultation for all patients wi th Staph. aureus bacteremia. Other organisms and resistance markers not containe d in this PCR panel cannot be excluded and follow-up of traditional culture resu lts is required. This sample was tested at the [facility] oratory using the [employer] Blood Culture ID Panel. This test is FDA stevo ared for in vitro diagnostic use and has been verified and approved by the [facility] Clinical Microbiology laboratory for clinical use. Reference Range: Not Detecte d BODY FLUID CULTURE + GRAM [id number] 12:28:00* Test Item Value Reference Range Interpretation [...] only: gram positive cocci in clusters POCT-GLUCOSE [id number] 11:57:00* Test Item Value Reference Range Interpretation Comments POC-GLUCOSE METER (BEAKER) (test code = 1538) 176 mg/dL 70-[address] [facility] [address] [facility] [address] POCT-GLUCOSE [id number] 08:08:00* Test Item Value Reference Range Interpretation Comments POC-GLUCOSE METER (BEAKER) (test code = 1538) 147 mg/dL 70-[address] [facility] [address] [facility] [address] [id number] 06:12:00* Test Item Value Reference Range Interpretation Comments PHOSPHORUS (BEAKER) (test code = 604) 2.3 mg/dL 2.3-4.7 [id number] 06:12:00* Test Item Value Reference Range Interpretation Comments MAGNESIUM (BEAKER) (test code = 627) 1.2 mg/dL 1.6-2.6 L BASIC METABOLIC [id number] 06:12:00* Test Item Value Reference Range Interpretation [...] NOT APPLICABLE FOR DIALYSIS PATIENTS. HEPATIC FUNCTION [id number] 06:12:00* Test Item Value Reference Range Interpretation [...] U/L 6-55 CBC W/PLT COUNT & AUTO [id number] 06:02:00* Test Item Value Reference Range Interpretation [...] code = 2801) 1 % 0-1 PROTHROMBIN [id number] 05:55:00* Test Item Value Reference Range Interpretation Comments PROTIME (BEAKER) (test code = 759) 17.6 seconds 11.7-14.7 H INR (BEAKER) (test code = 370) 1.5 <=5.9 RECOMMENDED COUMADIN/WARFARIN INR THERAPY RANGESSTANDARD DOSE: 2.0 - 3.0 Inclu rip: PROPHYLAXIS for venous thrombosis, systemic embolization; TREATMENT for zandra ous thrombosis and/or pulmonary embolus.HIGH RISK: Target INR is 2.5-3.5 for pat ients with mechanical heart valves.POCT-GLUCOSE [id number] 21:24:00* Test Item Value Reference Range Interpretation Comments POC-GLUCOSE METER (BEAKER) (test code = 1538) 180 mg/dL 70-[address] [facility] [address] [place] [address] POCT-GLUCOSE [id number] 17:27:00* Test Item Value Reference Range Interpretation Comments POC-GLUCOSE METER (BEAKER) (test code = 1538) 147 mg/dL 70-[address] [facility] [address] [facility] [address] URINE [id number] 13:01:00* Test Item Value Reference Range Interpretation Comments CULTURE (BEAKER) (test code = 1095) No growth BODY FLUID [id number] 12:52:00* Test Item Value Reference Range Interpretation Comments CRYSTALS, BODY FLUID (BEAKER) (test code = 2165) No crystals seen. [id number] (BEAKER) (test code = 2607) Jesus Johnson MD (electronic signature) POCT-GLUCOSE [id number] 11:27:00* Test Item Value Reference Range Interpretation Comments POC-GLUCOSE METER (BEAKER) (test code = 1538) 122 mg/dL 70-110 H TESTED AT [address] [address] BASIC METABOLIC [id number] 06:13:00* Test Item Value Reference Range Interpretation [...] GFR IS NOT APPLICABLE FOR DIALYSIS PATIENTS. [id number] 06:04:00* Test Item Value Reference Range Interpretation Comments PHOSPHORUS (BEAKER) (test code = 604) 1.7 mg/dL 2.3-4.7 L [id number] 06:04:00* Test Item Value Reference Range Interpretation Comments MAGNESIUM (BEAKER) (test code = 627) 1.4 mg/dL 1.6-2.6 L HEPATIC FUNCTION [id number] 06:04:00* Test Item Value Reference Range Interpretation [...] code = 347) 29 U/L 6-55 PROTHROMBIN [id number] 05:44:00* Test Item Value Reference Range Interpretation Comments PROTIME (BEAKER) (test code = 759) 14.9 seconds 11.7-14.7 H INR (BEAKER) (test code = 370) 1.2 <=5.9 RECOMMENDED COUMADIN/WARFARIN INR THERAPY RANGESSTANDARD DOSE: 2.0 - 3.0 Inclu rip: PROPHYLAXIS for venous thrombosis, systemic embolization; TREATMENT for zandra ous thrombosis and/or pulmonary embolus.HIGH RISK: Target INR is 2.5-3.5 for pat ients with mechanical heart valves.POCT-GLUCOSE [id number] 20:55:00* Test Item Value Reference Range Interpretation Comments POC-GLUCOSE METER (BEAKER) (test code = 1538) 168 mg/dL 70-110 H TESTED AT [address] [address] POCT-GLUCOSE [id number] 18:20:00* Test Item Value Reference Range Interpretation Comments POC-GLUCOSE METER (BEAKER) (test code = 1538) 153 mg/dL 70-110 H TESTED AT [address] [address] URINALYSIS W/ [id number] 14:33:00* Test Item Value Reference Range Interpretation [...] (BEAKER) (test code = 466) Negative Negat jeses UROBILINOGEN UA (BEAKER) (test code = 463) 3.0 mg/dL 0.2-1.0 H RBC UA (BEAKER) (test code = 519) 0 /HPF WBC UA (BEAKER) (test code = 520) < /HPF SOURCE(BEAKER) (test code = 1745) Urine, Clean Catch SEDIMENTATION [id number] 14:06:00* Test Item Value Reference Range Interpretation Comments SEDIMENTATION RATE, ERYTHROCYTE (BEAKER) (test code = 766) 114 mm/H R 0-40 H POCT-GLUCOSE [id number] 13:44:00* Test Item Value Reference Range Interpretation Comments POC-GLUCOSE METER (BEAKER) (test code = 1538) 122 mg/dL 70-[address] [facility] [address] [facility] [address] BODY FLUID CELL COUNT WITH [id number] 13:34:00* Test Item Value Reference Range Interpretation Comments APPEARANCE FLUID (BEAKER) (test code = 510) Moderately Bloody Clear A COLOR FLUID (BEAKER) (test code = 511) [place] Colorless, Stra w A RBC FLUID (BEAKER) (test code = 513) [address] /cu mm <=1 H ADJUSTED WBC FLUID (BEAKER) (test code = 1691) [address] /cu mm <=5 H LINING CELLS (BEAKER) [...] EDTA Tube CBC W/PLT COUNT & AUTO [id number] 11:29:00* Test Item Value Reference Range Interpretation [...] code = 2801) 1 % 0-1 POCT-GLUCOSE [id number] 09:49:00* Test Item Value Reference Range Interpretation Comments POC-GLUCOSE METER (BEAKER) (test code = 1538) 154 mg/dL 70-[address] [facility] [address] [facility] [address] COMPREHENSIVE METABOLIC [id number] 06:10:00* Test Item Value Reference Range Interpretation [...] IS NOT APPLICABLE FOR DIALYSIS PATIENTS. C-REACTIVE [id number] 06:10:00* Test Item Value Reference Range Interpretation Comments C-REACTIVE PROTEIN (BEAKER) (test code = 676) 18.92 mg/dL 0.00-0.5 0 H CBC W/PLT COUNT & AUTO [id number] 05:59:00* Test Item Value Reference Range Interpretation [...]
--- OUTSIDE RECORDS SUMMARY | 2020-03-14 02:56 | XMS REPORT | Clinical Summary ---
Author Author GARY [facility] Address Unknown Phone Unavailable Care Team Providers Care Dietitian Chief Name Role Phone Elenita Travis MD PCP [...] Not on file Results Not on fileafter 03/14/2019 Insurance Payer Benefit Subscriber ID Type Phone Address Plan / Group [facility] x[facility]xx MEDICARE ADV [phone] Advance Directives For more information, please contact: [facility] [address] [place] [address] Date Inactivated Comments Code Status Date Activated 07/19/2017 7:46 PM Full Code 07/13/2017 9:44 AM This code status was determined by: Patient 11/13/2014 3:57 PM Full Code 11/12/2014 4:23 PM This code status was determined by: Patient
[2020-03-14] MEDS ORDERED: MEPERIDINE HCL INJ 25 MG/ML VIAL ONE (03:04)
[2020-03-14] MEDS ORDERED: ONDANSETRON HCL INJ 2MG/ML 2ML 2 MG/ML VIAL ONE ×2 (03:09→17:12)
[2020-03-14] MEDS ORDERED: METOCLOPRAMIDE HCL 10 MG/2ML VIAL ONE (03:09)
[2020-03-14] MEDS: DEXTROSE 5%/0.45% SOD CHL 1,000 ML IV SCH ×2 (03:53→14:08)
[2020-03-14] MEDS: PIPER-TAZ 3.375 GM 50 ML IV SCH ×3 (06:00→18:54)
[2020-03-14 06:58] LABS: BASOPHILS % 0.2 % (0.0-1.0); EOSINOPHILS % 0.2 % (0.0-6.0); HEMATOCRIT 38.7 % (38.2-49.6); HEMOGLOBIN 12.1 g/dL (14.0-18.0); LYMPHOCYTES # (AUTO) 0.3 (1.0-3.2); LYMPHOCYTES % 3.5 % (18.0-39.1); MEAN CORPUSCULAR HEMOGLOBIN 26.9 pg (28-32); MEAN CORPUSCULAR HGB CONC 31.3 g/dL (31-35); MONOCYTES # (AUTO) 0.5 (0.2-0.8); MONOCYTES % 5.2 % (4.4-11.3); NEUTROPHILS # (AUTO) 8.1 (2.1-6.9); NEUTROPHILS % 90.3 % (38.7-80.0); PLATELET COUNT 142 x10e3/uL (140-360)
[2020-03-14 07:10] LABS: ANION GAP 16.8 mmol/L (8-16); BLOOD UREA NITROGEN 7 mg/dL (7-26); BUN/CREATININE RATIO 10 (6-25); CALCIUM 8.7 mg/dL (8.4-10.2); CARBON DIOXIDE 20 mmol/L (22-29); CHLORIDE 108 mmol/L (98-107); CREATININE, SERUM 0.71 mg/dL (0.72-1.25); EST GLOMERULAR FILTRATION RATE > 60 ML/MIN (60-); GLUCOSE 176 mg/dL (74-118); POTASSIUM 3.8 mmol/L (3.5-5.1); SODIUM 141 mmol/L (136-145)
--- NOTE | 2020-03-14 13:05 | NUR ---
patient ambulated to bathroom without difficulty. room air. used walker due to monitor and spain catheter with patient to help minimize risk of fall. pt tolerated ambulation well. patient is now sitting in chair. patient is in good spirits. spoke with children this morning. pain is tolerable thus far. pt denies needing pain medication at this time. discussed pain management, safety, fall risk, fluids and hydration. pt verbalized understanding. patient demonstrated use of IS with respiratory at bedside earlier.
[2020-03-14] MEDS ORDERED: FENTANYL CITRATE/PF 100MCG/2 ML INJ ONE (13:35)
[2020-03-14] MEDS: MORPHINE SULFATE INJ 4 MG/ML INJ 1ML IV PRN (14:25)
[2020-03-14] MEDS ORDERED: SUCCINYLCHOLINE CHLORIDE 20 MG/ML 10ML VIAL ONE (17:12)
[2020-03-14] MEDS ORDERED: PROPOFOL IV EMULSION 10 MG/ML 20 ML VIAL ONE (17:12)
[2020-03-14] MEDS ORDERED: LIDOCAINE HCL 2% LOCAL INJ 5 ML SDV VIAL INJ ONE (17:12)
[2020-03-14] MEDS ORDERED: SEVOFLURANE INHAL SOLN 250 ML PEN BTL ONE (17:12)
[2020-03-14] MEDS ORDERED: DEXAMETHASONE SOD PHOS INJ 4 MG/ML VIAL ONE (17:12)
[2020-03-14] MEDS ORDERED: ROCURONIUM BROMIDE 10 MG/ML 5ML VIAL IV ONE (17:12)
--- NOTE | 2020-03-14 18:26 | Consultation ---
DATE OF CONSULTATION: 03/14/2020 HISTORY OF PRESENT ILLNESS: The patient is a 74-year-old male, who presents with complaints of pain in the right groin, he has had no hernia for a long time, says the pain suddenly got worse today. He denies nausea, vomiting, however the pain is persisted. He came to the emergency room, he had some mild hypotension which responded to fluids. CT of the abdomen and pelvis done, which revealed large right inguinal hernia with questionable strangulation. PAST MEDICAL HISTORY: Significant for hypertension, history of carcinoma of the prostate. He has had previous TURP. He is treated with Lupron. MEDICATIONS: His other medications listed in the chart. ALLERGIES: MIDAZOLAM. FAMILY HISTORY: Noncontributory. SOCIAL HISTORY: The patient does not smoke cigarettes or drink alcohol. REVIEW OF SYSTEMS: Significant for chronic dysphagia possibly secondary to achalasia. PHYSICAL EXAMINATION: GENERAL: The patient is awake and alert, in no distress. VITAL SIGNS: Heart rate around 110, blood pressure is normal. HEENT: Sclerae is nonicteric. NECK: Supple. No masses. LUNGS: Equal breath sounds are clear bilaterally. CARDIAC: Slightly irregular rhythm with no murmur. ABDOMEN: Mildly distended. There is a large right inguinal hernia present, which is not reducible. EXTREMITIES: Have no edema. NEUROLOGIC: Grossly intact. LABORATORY TESTS: White blood count is normal 6000 with a mild left-shifted differential, hemoglobin and hematocrit are normal. Chemistries, bicarbonate level of 19, otherwise were normal. ASSESSMENT: A 74-year-old male with incarcerated right inguinal hernia. PLAN: Repair of the hernia to be done today with possible repair with mesh. Procedure was explained to the patient including risks, benefits and alternatives. He understands. He has had the opportunity to ask questions. Thank you for asking me to see Mr. Genao. MD ALOK Benson/FELICITA /[id number]
[2020-03-14] MEDS: FAMOTIDINE 20 MG TAB PO SCH (18:40)
[2020-03-14] MEDS: PREDNISONE 5 MG TAB PO SCH (18:40)
--- NOTE | 2020-03-14 18:51 | Operative Report ---
DATE OF PROCEDURE: 03/14/2020 SURGEON: Coleman Gabriel MD PREOPERATIVE DIAGNOSIS: Incarcerated right inguinal hernia with intestinal obstruction. POSTOPERATIVE DIAGNOSIS: Incarcerated right inguinal hernia with intestinal obstruction. PROCEDURE: Repair of incarcerated right inguinal hernia with release of small bowel obstruction. BUSINESS UNIT DIRECTOR: None. ANESTHESIA: General. INDICATIONS AND FINDINGS: The patient is a 74-year-old male who presents with complaints of severe pain in the right groin area. Evaluation revealed a large right inguinal hernia with signs of strangulation and obstruction surgery. The patient is found to have an indirect right inguinal hernia containing edematous cecum and terminal ileum with a bowel proximally was being obstructed. The bowel was edematous and congested, but all appeared viable. TECHNIQUE: After adequate general endotracheal anesthesia, patient in supine position, the right groin area and abdomen were prepped and draped in a sterile fashion with ChloraPrep solution. Transverse incision made in the right inguinal area, carried down through subcutaneous tissue and Carin's fascia until the external oblique fascia was seen. This was opened in direction of its fibers through the external ring. The ilioinguinal nerve was not immediately seen. There was a large herniated mass and spermatic cord was dissected free from the floor of the inguinal canal. The hernia sac was opened at this point, and there was some clear fluid in the hernia sac and bowel. The bowel was delivered from the scrotum into the inguinal area. The cecum was delivered up first, this appeared viable, but congested and as the bowel was brought up into the inguinal canal, it was then reduced into the peritoneal cavity. The bowel was noted to be somewhat edematous with bowel proximal to where the hernia was being noted to be dilated. Once all the bowel was reduced in the peritoneal cavity, the spermatic cord was dissected free from the floor of the inguinal canal. The hernia sac which had been open was closed with a running suture of 3-0 Vicryl. The hernia sac was dissected free from the spermatic cord. It was also noted to be a small direct hernia. This hernia sac extended all the way into the scrotum and the hernia sac was divided distal to the area where it had previously been opened, the distal sac left in place while the divided sac was ligated with 2-0 Vicryl and then freed from the spermatic cord and reduced the internal ring. The hernia was then repaired directly using 0 Prolene. The transversalis fascia was then imbricated to itself running from medial to lateral up to the internal ring, imbricated such that it was large enough for Ellyn clamp to pass through the internal ring, but nothing larger and a 2nd layer was placed imbricating the shelving edge of inguinal ligament to the conjoined tendon, this time running from lateral to medial. Hemostasis of the wound was seen to be adequate. The wound was infiltrated with 0.5% Marcaine. The spermatic cord was returned to its normal position. The external oblique fascia was then closed with a running suture of 2-0 Vicryl. Care was taken not to entrap any nerves, Carin's fascia was closed. A 19-Slovenian True drain was placed through the wound into the scrotum. This brought out through a separate stab wound incision. The subcutaneous tissue and Carin's fascia were closed with a running suture of 3-0 Vicryl. Skin was closed with zuhair. Sterile dressing was applied. The patient tolerated the procedure well. Estimated blood loss was 40 mL. There were no complications. All counts were correct. The patient was taken to the recovery room in satisfactory condition. MD ALOK Benson/MODL /[id number] cc: Lorraine Caputo MD
[2020-03-14] MEDS: TAMSULOSIN HCL 0.4 MG CAP PO SCH (20:42)
[2020-03-14] MEDS ORDERED: HYDRALAZINE HCL 20 MG/ML VIAL IV PRN (21:15)
--- NOTE | 2020-03-14 23:33 | History and Physical ---
PCP: Dr. Elenita Travis at [facility]. CHIEF COMPLAINT: Right inguinal hernia and pain. HISTORY OF PRESENT ILLNESS: This is a 74-year-old male with past medical history of hypertension, prostate cancer, asthma, and esophageal dysfunction with regurgitation, presented to the ER with complaints of right groin pain. He reports was doing fine when he suddenly felt right groin severe pain. He denies any chest pain, nausea, vomiting, shortness of breath, diarrhea, fever, or chills. Upon arrival to the ER, he was noted to be hypotensive with lactic acid of 2.7. CT abdomen and pelvis showed large bowel containing right inguinal hernia. Mild edema in the hernia is suggestive of strangulation, slightly dilated loops of small bowel proximal to the hernia is suspicious for low grade obstruction. The hernia contains distal small bowel and cecum and appendix. 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 Surgical team was consulted emergently and underwent hernia repair early this morning. PAST MEDICAL HISTORY: 1. Hypertension. 2. Prostate cancer. 3. Asthma. 4. Esophageal dysfunction with regurgitation. PAST SURGICAL HISTORY: TURP. FAMILY MEDICAL HISTORY: Reports mother and father with heart attack. SOCIAL HISTORY: He denies any tobacco, alcohol, or illicit drug use. He is retired and lives by himself. ALLERGIES: MIDAZOLAM. REVIEW OF SYSTEMS: Ten system reviewed and negative except as reported in HPI. PHYSICAL EXAMINATION: VITAL SIGNS: Temperature 98.7, pulse is 102, respirations 24, blood pressure 155/81, pulse ox is 99% on room air. GENERAL: No acute distress. HEENT: Normocephalic and atraumatic. NECK: Supple. LUNGS: Clear to auscultation. CARDIOVASCULAR: Regular rate and rhythm. GI: Soft and nontender. Right groin area with dressing intact. NEUROLOGIC: Alert, awake, and oriented x3. : Chadwick in place. MUSCULOSKELETAL: Moves all extremities. SKIN: Dry. PSYCH: Calm. LABORATORY DATA: WBC 8.94, hemoglobin 12.1, hematocrit 38.7, and platelets 142. Sodium 141, potassium 3.8, CO2 of 20, Anion gap 15.8, BUN is 7, creatinine 0.71, estimated GFR is greater than 60. Lactic acid is 2.9, calcium is 8.7. Coronavirus PCR is negative. UA unremarkable. CT abdomen and pelvis as reported in HPI. IMPRESSION: 1. Right inguinal hernia with strangulation, status post hernia repair. Continue Zosyn, IV fluids, and pain management as needed. 2. Hypertension. We will continue home dose of lisinopril and treat as needed. 3. History of prostate cancer. We will resume Flomax. 4. Esophagitis. We will continue on Pepcid. 5. History of asthma. Albuterol as needed. 6. Deep venous thrombosis prophylaxis. No anticoagulation due to recent surgery. 7. Lactic acidosis. Does not appear to be septic. We will continue with IV fluids and trend. PLAN: To continue with IV fluids and antibiotics. He may transfer out of ICU and start clear liquids. Dictated by SIXTO Edwards Lorraine Caputo MD MY/MODL /[id number]
[2020-03-15] VITALS (9 sets, daily range): BP systolic 127–159; BP diastolic 63–86
[2020-03-15] MEDS: PIPER-TAZ 3.375 GM 50 ML IV SCH ×4 (00:36→18:17)
[2020-03-15] MEDS: DEXTROSE 5%/0.45% SOD CHL 1,000 ML IV SCH ×2 (01:01→12:42)
[2020-03-15] MEDS: MORPHINE SULFATE INJ 4 MG/ML INJ 1ML IV PRN ×2 (01:08→21:25)
[2020-03-15 04:49] LABS: BASOPHILS % 0.1 % (0.0-1.0); HEMATOCRIT 33.6 % (38.2-49.6); HEMOGLOBIN 10.6 g/dL (14.0-18.0); LYMPHOCYTES # (AUTO) 0.8 (1.0-3.2); LYMPHOCYTES % 10.8 % (18.0-39.1); MEAN CORPUSCULAR HGB CONC 31.5 g/dL (31-35); MEAN CORPUSCULAR VOLUME 85.5 fL (81-99); MONOCYTES # (AUTO) 0.4 (0.2-0.8); MONOCYTES % 6.3 % (4.4-11.3); NEUTROPHILS # (AUTO) 5.8 (2.1-6.9); NEUTROPHILS % 82.1 % (38.7-80.0); PLATELET COUNT 123 x10e3/uL (140-360); RED BLOOD COUNT 3.93 x10e6/uL (4.3-5.7); RED CELL DISTRIBUTION WIDTH 15.7 % (11.7-14.4)
[2020-03-15 05:05] LABS: ANION GAP 14.6 mmol/L (8-16); BLOOD UREA NITROGEN 8 mg/dL (7-26); BUN/CREATININE RATIO 12 (6-25); CALCIUM 7.9 mg/dL (8.4-10.2); CARBON DIOXIDE 23 mmol/L (22-29); CHLORIDE 106 mmol/L (98-107); CREATININE, SERUM 0.67 mg/dL (0.72-1.25); EST GLOMERULAR FILTRATION RATE > 60 ML/MIN (60-); GLUCOSE 139 mg/dL (74-118); POTASSIUM 3.6 mmol/L (3.5-5.1); SODIUM 140 mmol/L (136-145)
[2020-03-15] MEDS: FAMOTIDINE 20 MG TAB PO SCH ×2 (09:38→18:11)
[2020-03-15] MEDS: LISINOPRIL 10 MG TAB PO SCH (09:38)
[2020-03-15] MEDS: PREDNISONE 5 MG TAB PO SCH ×2 (09:38→18:12)
--- NOTE | 2020-03-15 14:20 | NUR ---
pt arrived to room 211 via wheelchair with RN. pt awake, alert, oriented X4, no s/s of distress, no complaints at this time. pt transferred easily from wheelchair to bedside chair. pt sitting up comfortably. in stable condition.
--- NOTE | 2020-03-15 20:33 | Progress Note ---
DATE: 03/15/2020 CONSULTANTS: Dr. Gabriel with Surgery. SUBJECTIVE: The patient is seen in the ICU, lying in bed comfortably, reports 2/10 pain in the right groin area. Chadwick in place, tolerating full liquid diet. He denies any fever, chills, chest pain, shortness of breath, hematuria, passing gas. OBJECTIVE: VITAL SIGNS: Temperature 97.9, pulse is 79, respirations 16, blood pressure 134/63, pulse ox 97% on room air. GENERAL: No acute distress. HEENT: Normocephalic and atraumatic. NECK: Supple. LUNGS: Clear to auscultation. CARDIOVASCULAR: Regular rate and rhythm. GI: Soft and nontender, right groin area tenderness with palpation, dressing intact. NEUROLOGIC: Alert, awake, and oriented x3. : Chadwick in place. MUSCULOSKELETAL: Moves all extremities. SKIN: Dry. PSYCH: Calm. LABORATORY DATA: WBC 7.0, hemoglobin 10.6, hematocrit 33.6, platelets 123. Sodium 140, potassium 3.6, CO2 of 23, creatinine 0.67, estimated GFR is 60. Lactic acid 2.0, calcium 7.9. Coronavirus PCR not detected. IMPRESSION: 1. Incarcerated right inguinal hernia, status post repair, continue on Zosyn and IV fluids. Pain management as needed. Tolerating clear liquids and advancing to full liquid diet per Dr. Gabriel. 2. Hypertension, continue on lisinopril and hydralazine as needed. 3. History of prostate cancer, continue Flomax. 4. Esophagitis, continue on PPI. 5. History of asthma, nebs as needed. 6. Lactic acidosis, resolved. 7. Deep vein thrombosis prophylaxis, no anticoagulation due to recent surgery. PLAN: Continue IV fluids and antibiotics. Advance diet to full liquids per surgical team. Anticipate discharge once cleared by surgeon. Dictated by SIXTO Edwards Lorraine Caputo MD MY/MODL /[id number]
[2020-03-15] MEDS: ONDANSETRON HCL INJ 2MG/ML 2ML 2 MG/ML VIAL IV PRN (21:25)
[2020-03-15] MEDS: TAMSULOSIN HCL 0.4 MG CAP PO SCH (21:51)
[2020-03-16] VITALS (8 sets, daily range): BP systolic 129–138; BP diastolic 64–80
[2020-03-16] MEDS: PIPER-TAZ 3.375 GM 50 ML IV SCH ×5 (00:44→23:53)
[2020-03-16 06:19] LABS: BASOPHILS % 0.3 % (0.0-1.0); EOSINOPHILS # (AUTO) 0.1 (0.0-0.4); EOSINOPHILS % 1.2 % (0.0-6.0); HEMATOCRIT 30.5 % (38.2-49.6); HEMOGLOBIN 9.7 g/dL (14.0-18.0); LYMPHOCYTES # (AUTO) 1.2 (1.0-3.2); LYMPHOCYTES % 18.3 % (18.0-39.1); MEAN CORPUSCULAR HEMOGLOBIN 27.2 pg (28-32); MEAN CORPUSCULAR HGB CONC 31.8 g/dL (31-35); MEAN CORPUSCULAR VOLUME 85.7 fL (81-99); MONOCYTES # (AUTO) 0.4 (0.2-0.8); MONOCYTES % 5.8 % (4.4-11.3); NEUTROPHILS # (AUTO) 4.8 (2.1-6.9); NEUTROPHILS % 73.8 % (38.7-80.0); PLATELET COUNT 132 x10e3/uL (140-360); RED BLOOD COUNT 3.56 x10e6/uL (4.3-5.7); RED CELL DISTRIBUTION WIDTH 15.7 % (11.7-14.4)
[2020-03-16 06:35] LABS: ANION GAP 12.6 mmol/L (8-16); BLOOD UREA NITROGEN 7 mg/dL (7-26); BUN/CREATININE RATIO 11 (6-25); CALCIUM 7.9 mg/dL (8.4-10.2); CARBON DIOXIDE 23 mmol/L (22-29); CHLORIDE 109 mmol/L (98-107); CREATININE, SERUM 0.62 mg/dL (0.72-1.25); EST GLOMERULAR FILTRATION RATE > 60 ML/MIN (60-); GLUCOSE 104 mg/dL (74-118); POTASSIUM 3.6 mmol/L (3.5-5.1); SODIUM 141 mmol/L (136-145)
--- NOTE | 2020-03-16 06:35 | NUR ---
Chadwick discontinued per MD order. Patient tolerated well. Due to void.
--- NOTE | 2020-03-16 07:24 | NUR ---
Bedside report and walking rounds completed with oncoming nurse. Patient in bed with call light within reach. No issues or concerns noted.
[2020-03-16] MEDS: FAMOTIDINE 20 MG TAB PO SCH ×2 (07:30→17:42)
--- NOTE | 2020-03-16 07:30 | NUR ---
The pt. was received from the off-going nurse in stable condition. He denies pain or discomfort at this time.The pt. states "I will call you when I need med for pain"
[2020-03-16] MEDS: PREDNISONE 5 MG TAB PO SCH ×2 (09:00→17:42)
[2020-03-16] MEDS: LISINOPRIL 10 MG TAB PO SCH (09:00)
--- NOTE | 2020-03-16 12:10 | NUR ---
Pt. expressed no spiritual or emotional concerns at this time. [employer] provided hospitality and facilitated storytelling. No need to follow as this time. [facility] O: [phone]
--- NOTE | 2020-03-16 14:25 | Progress Note ---
DATE: 03/16/2020 CHAIN SAW OPERATOR: Dr. Gabriel with Surgery. SUBJECTIVE: The patient is sitting in bed with no acute distress, he has finished eating lunch and reports was able to tolerate the mashed potatoes but not much else. The Chadwick has been discontinued, voiding without difficulties. He denies any chest pain, shortness of breath, chest pain, nausea, vomiting, fever, or chills. Has not had a bowel movement yet. OBJECTIVE: VITAL SIGNS: Temperature 98.8, pulse is 92, respirations 20, blood pressure 129/80, pulse ox 96% on room air. GENERAL: No acute distress. HEENT: Normocephalic, atraumatic. NECK: Supple. LUNGS: Clear to auscultation. CARDIOVASCULAR: Regular rate and rhythm. GI: Soft and nontender. Right groin dressing intact and mild tenderness. NEUROLOGIC: Alert, awake and oriented x3. : Voiding without difficulty. MUSCULOSKELETAL: Moves all extremities. SKIN: Dry. PSYCH: Calm. LABORATORY DATA: WBC 6.51, hemoglobin 9.7, hematocrit 30.5, platelet 132. Sodium 141, potassium 3.6, CO2 of 23, BUN 7, creatinine 0.62, lactic acid 2.0, calcium 7.9. IMPRESSION: 1. Incarcerated right inguinal hernia, status post repair. Continue on Zosyn and pain management as needed. Advancing diet to GI soft per Surgery. 2. Hypertension. Continue lisinopril and hydralazine as needed. 3. History of prostate cancer. Continue Flomax. 4. Esophagitis. Continue PPI. 5. History of asthma. Nebs p.r.n. 6. Deep vein thrombosis prophylaxis. No anticoagulation due to recent surgery. PLAN: To continue antibiotics, advance diet to GI soft. We will consult PT to evaluate and treat. Anticipate discharge home tomorrow if continues to improve. Dictated by SIXTO Edwards Lorraine Caputo MD MY/MODL /[id number]
--- NOTE | 2020-03-16 16:43 | NUR ---
Discontinuing PT services since patient is Mod I in functional mobility. Thank you Addendum: 03/16/20 at 1644 by Rigoberto gonzalez PT Amended: Links added.
--- NOTE | 2020-03-16 19:20 | NUR ---
BEDSIDE SHIFT REPORT RECEIVED. PATIENT IS RESTING IN BED, AAOX3. RESP EVEN AND UNLABORED. NO ACUTE DISTRESS NOTED. PATIENT DENIES OF ANY PAIN OR DISCOMFORT AT THIS TIME. TELE IN PLACE. EDUCATED PT ABOUT FALL PRECAUTIONS. PT VERBALIZED UNDERSTANDING. BED IS LOW AND LOCKED. SIDE RAILS X2. CALL LIGHT WITH IN EASY REACH. BED ALARM IS ON. ALL SAFETY MEASURES IN PLACE. PT DENIES NEEDS AT THIS TIME.
[2020-03-16] MEDS: TAMSULOSIN HCL 0.4 MG CAP PO SCH (20:56)
[2020-03-16] MEDS: ONDANSETRON HCL INJ 2MG/ML 2ML 2 MG/ML VIAL IV PRN (23:53)
[2020-03-16] MEDS: MORPHINE SULFATE INJ 4 MG/ML INJ 1ML IV PRN (23:53)
[2020-03-17] VITALS: BP 142/78
[2020-03-17 04:00] VITALS: BP 159/84
[2020-03-17 05:12] LABS: HEMATOCRIT 33.6 % (38.2-49.6); HEMOGLOBIN 10.6 g/dL (14.0-18.0)
[2020-03-17] MEDS: PIPER-TAZ 3.375 GM 50 ML IV SCH (06:23)
[2020-03-17 08:00] VITALS: BP 138/65
[2020-03-17] MEDS: FAMOTIDINE 20 MG TAB PO SCH (08:34)
[2020-03-17] MEDS: PREDNISONE 5 MG TAB PO SCH (08:34)
[2020-03-17] MEDS: LISINOPRIL 10 MG TAB PO SCH (08:35)
[2020-03-17] MEDS: MORPHINE SULFATE INJ 4 MG/ML INJ 1ML IV PRN (10:03)
[2020-03-17] MEDS ORDERED: ULTRAM50 MG PO (10:31)
[2020-03-17 12:00] VITALS: BP 147/73
[2020-03-17] MEDS ORDERED: ONDANSETRON HCL 4 MG ORAL DISINTEGRATING TAB PO PRN (12:15)
--- NOTE | 2020-03-17 23:08 | Discharge Summary ---
PCP: Dr. Travis at [facility]. FINAL DISCHARGE DIAGNOSES: 1. Incarcerated right inguinal hernia, status post repair. 2. Hypertension. 3. History of prostate cancer. 4. Esophagitis. 5. History of asthma. CONSULTANTS: Dr. Gabriel with surgical team. PROCEDURE: He underwent incarcerated alert right inguinal hernia repair. KAM drain to the right side. HISTORY: Per HPI. HOSPITAL COURSE: This is a 74-year-old male, who presented to the ER with complaints of abdominal pain and right lower groin pain radiating to the scrotum area. Imaging, CT abdomen and pelvis showed large fat and bowel containing right inguinal hernia, mild edema in the hernia sac suggestive of strangulation, slightly dilated loops of small bowel proximal to the hernia is suspicious for low-grade obstruction. The hernia contains distal small bowel, cecum, and appendix, Dr. Gabriel was consulted, started on IV antibiotics and underwent surgical repair. He was monitored in the ICU and transferred to the floor when stable. He was started on clear liquids and advanced diet as tolerated. He was on prophylactic Zosyn. Pain management with morphine. KAM drain in place. Chadwick catheter was discontinued. Today, he is tolerating GI soft diet, passing gas, and tolerating diet. He is cleared from surgical team to discharge home. We will discharge home on current medication, to follow up with his PCP and Dr. Gabriel in 4 days for drain removal. PHYSICAL EXAMINATION: VITAL SIGNS: Temperature 98.9, pulse is 96, respirations 20, blood pressure 147/73, pulse ox is 96% on room air. GENERAL: No acute distress. LUNGS: Clear to auscultation. CARDIOVASCULAR: Regular rate and rhythm. GI: Soft and mild tenderness in the right groin area with palpation. NEUROLOGIC: Alert, awake, and oriented x3. : Voiding without difficulty. MUSCULOSKELETAL: Moves all extremities/ SKIN: Dry. PSYCH: Calm. CONDITION AT DISCHARGE: Improved and stable. DISCHARGE MEDICATIONS: Please see medication reconciliation list. FOLLOWUP: Follow up with PCP in 1 to 2 weeks, with Dr. Gabriel in 4 to 5 days for removal of drain, with GI per appointment for Botox. TIME SPENT: Total discharge time is 32 minutes. Dictated by SIXTO Edwards Yiching Royer Caputo, MD MY/MODL /[id number] cc: [facility]
== END 2020-03-17 12:32 | disposition home or self-care (01) | DRG 330 ==
LOC: ER 20:18 → OR 03-14 00:52 → ICU 03-14 02:54 → MED/SURG2 03-15 14:29
PROVIDERS: ADMIT Internal Medicine; ATTEND Internal Medicine
PROC: 0DS80ZZ Reposition Small Intestine, Open Approach (ICD-10-PCS; 2020-03-14)
PROC: 0YQ50ZZ Repair Right Inguinal Region, Open Approach (ICD-10-PCS; principal; 2020-03-14 00:49)
DX: K40.30 Unilateral inguinal hernia, with obstruction, without gangrene, not specified as recurrent (principal); E87.2 Acidosis; I10 Essential (primary) hypertension; Z85.46 Personal history of malignant neoplasm of prostate; K20.9 Esophagitis, unspecified; J45.909 Unspecified asthma, uncomplicated; Z11.59 Encounter for screening for other viral diseases
CPT/HCPCS: 36415; 74177; 80048; 80053; 81001; 82550; 82553; 83605; 83690; 84484; 85014; 85018; 85025; 86850; 86900; 93005; 96374; 96375; 99284; J0330; J1100; J2001; J2175; J2270; J2405; J2543; J2765; J3010; J7030; J7512; Q9967; U0002